=== PATIENT | female | born 1975 | race Caucasian/White ===

== ENCOUNTER → 2022-01-19 18:07 | Outpatient (CLI) | payer BC, SELFPAY ==
[2022-01-19 14:31] LABS: Alanine Aminotransferase 16 U/L (12-78); Albumin Level 4.5 g/dl (3.5-5.0); Albumin/Globulin Ratio 1.8 (1.1-1.8); Alkaline Phosphatase 40 U/L (38-126); Anion Gap 13.3 mEq/L (5-15); Aspartate Amino Transferase 28 U/L (14-36); Bilirubin,Total 0.5 mg/dl (0.2-1.3); Blood Urea Nitrogen 11 mg/dl (7-17); Carbon Dioxide 28 mmol/L (22.0-30.0); Chloride 105 mmol/L (98-107); Chol/HDL Ratio 3.9 (1-3.5); Cholesterol 192 mg/dl (140-200); Estimated Glomerular Filt Rate 90 ml/min (>60); GFR (African American) 109 ML/MIN (>60); Globulin 2.5 g/dL (1.3-3.2); Glucose 83 mg/dl (74-100); HDL Cholesterol 49 mg/dl (40-60); Potassium 4.3 mmoL/L (3.5-5.1); Sodium 142 mmol/L (136-145); Triglycerides 96 mg/dl (30-150); VLDL Cholesterol 19 mg/dL (0-40)
[2022-01-19 14:35] LABS: Basophils # 0.1 K/mm3 (0-0.2); Basophils % 1.4 % (0.1-2.0); Eosinophils # 0.1 K/mm3 (0.0-0.4); Eosinophils % 1.9 % (0.1-12.0); Hemoglobin 14.4 g/dL (12.2-16.2); Lymphocytes % 22.1 % (10-50); Mean Corpuscular HGB Conc 32.1 g/dL (31.8-35.4); Mean Corpuscular Hemoglobin 29.2 pg (27.0-31.2); Mean Corpuscular Volume 91.1 fl (81-99); Mean Platelet Volume 11.7 fl (7.4-10.4); Monocytes # 0.3 K/mm3 (0.1-1.0); Monocytes % 5.6 % (1.7-9.3); Neutrophils # 3.1 K/mm3 (1.8-7.8); Neutrophils % 69.1 % (37.0-80.0); Platelet Count 241 K/mm3 (142-424); Red Blood Count 4.94 M/mm3 (4.20-5.40); Red Cell Distribution Width 14.4 % (11.5-17.5); White Blood Count 4.5 K/mm3 (4.8-10.8)
[2022-01-19 14:43] LABS: Direct LDL Cholesterol 97.94 mg/dL (100-129)
[2022-01-19 14:59] LABS: 25-OH Vitamin D, Total 36.8 ng/mL (30-100)
[2022-01-19 15:02] LABS: Thyroid Stimulating Hormone 1.38 uIU/mL (0.465-4.68)
== END ==
PROVIDERS: Visit Provider Physician Assistant
DX: Z00.00 Encounter for general adult medical examination without abnormal findings (principal); E03.9 Hypothyroidism, unspecified
CPT/HCPCS: 80053; 80061; 82306; 84443; 85025

== ENCOUNTER → 2022-08-03 16:56 | Outpatient (CLI) | payer BC, SELFPAY | PROVIDERS: Visit Provider Podiatrist | DX: B35.1 Tinea unguium (principal) | CPT/HCPCS: 87220 ==

== ENCOUNTER → 2022-08-06 16:25 | Outpatient (CLI) | payer BC, SELFPAY | PROVIDERS: Visit Provider Podiatrist | DX: M79.674 Pain in right toe(s) (principal); B07.0 Plantar wart | CPT/HCPCS: 87070; 87205 ==

== ENCOUNTER → 2022-10-28 12:22 | Outpatient (CLI) | payer BC, SELFPAY ==
[2022-10-29 14:30] LABS: H. pylori Breath Test Negative (Negative)
== END ==
PROVIDERS: PCP Physician Assistant; Visit Provider Physician Assistant
DX: R14.0 Abdominal distension (gaseous) (principal); R14.2 Eructation
CPT/HCPCS: 83013

== ENCOUNTER → 2023-05-20 16:50 | Outpatient (CLI) | payer BC, SELFPAY ==
[2023-05-20 13:11] LABS: Basophils % 0.7 % (0.1-2.0); Eosinophils # 0.1 K/mm3 (0.0-0.4); Eosinophils % 1.3 % (0.1-12.0); Hematocrit 46.1 % (37.0-47.0); Hemoglobin 14.4 g/dL (12.2-16.2); Lymphocytes # 1.3 K/mm3 (0.7-4.5); Lymphocytes % 25.4 % (10-50); Mean Corpuscular HGB Conc 31.3 g/dL (31.8-35.4); Mean Corpuscular Hemoglobin 28.3 pg (27.0-31.2); Mean Corpuscular Volume 90.3 fl (81-99); Mean Platelet Volume 11.5 fl (7.4-10.4); Monocytes # 0.4 K/mm3 (0.1-1.0); Monocytes % 6.9 % (1.7-9.3); Neutrophils # 3.3 K/mm3 (1.8-7.8); Neutrophils % 65.8 % (37.0-80.0); Platelet Count 233 K/mm3 (142-424); Red Blood Count 5.11 M/mm3 (4.20-5.40); Red Cell Distribution Width 14.1 % (11.5-17.5); White Blood Count 5.1 K/mm3 (4.8-10.8)
[2023-05-20 13:35] LABS: Erythrocyte Sedimentation Rate 11 mm/hr (0-20)
[2023-05-20 13:39] LABS: Alanine Aminotransferase 18 U/L (12-78); Albumin/Globulin Ratio 1.7 (1.1-1.8); Alkaline Phosphatase 66 U/L (38-126); Amylase 74 U/L (30-110); Anion Gap 17.4 mEq/L (5-15); Aspartate Amino Transferase 30 U/L (14-36); Bilirubin,Total 0.3 mg/dl (0.2-1.3); Blood Urea Nitrogen 9 mg/dl (7-17); Calcium 9.1 mg/dl (8.4-10.2); Carbon Dioxide 26 mmol/L (22.0-30.0); Chloride 105 mmol/L (98-107); Chol/HDL Ratio 3.7 (1-3.5); Cholesterol 212 mg/dl (140-200); Estimated Glomerular Filt Rate 77 ml/min (>60); GFR (African American) 93 ML/MIN (>60); Glucose 77 mg/dl (74-100); HDL Cholesterol 58 mg/dl (40-60); Lipase 175 U/L (23-300); Potassium 4.4 mmoL/L (3.5-5.1); Sodium 144 mmol/L (136-145); Triglycerides 229 mg/dl (30-150); VLDL Cholesterol 46 mg/dL (0-40)
[2023-05-20 13:50] LABS: Direct LDL Cholesterol 105.45 mg/dL (100-129)
[2023-05-20 13:54] LABS: 25-OH Vitamin D, Total 35.3 ng/mL (30-100)
[2023-05-20 21:21] LABS: Thyroid Stimulating Hormone 3.63 uIU/mL (0.465-4.68)
[2023-05-22 09:23] LABS: FSH 5.2 mIU/mL (.); LH 3.8 mIU/mL (.); Progesterone 0.1 ng/mL (.); Testosterone,Total 16 ng/dL (4-50)
[2023-05-25 13:08] LABS: Anti-Centromere B Antibodies <0.2 AI (0.0-0.9); Anti-DNA (DS) Ab Qn 1 IU/mL (0-9); Anti-Jo-1 <0.2 AI (0.0-0.9); Anti-Smith Antibody <0.2 AI (0.0-0.9); Antichromatin Antibodies <0.2 AI (0.0-0.9); Antiscleroderma-70 Antibodies <0.2 AI (0.0-0.9); RNP Antibodies >8.0 AI (0.0-0.9); Sjogren's Anti-SS-A <0.2 AI (0.0-0.9); Sjogren's Anti-SS-B <0.2 AI (0.0-0.9)
[2023-05-28 19:35] LABS: Estrogen 138 pg/mL (.)
== END ==
PROVIDERS: PCP Physician Assistant; Visit Provider Physician Assistant
DX: R07.9 Chest pain, unspecified (principal); M54.9 Dorsalgia, unspecified; E03.9 Hypothyroidism, unspecified; R00.2 Palpitations; R06.02 Shortness of breath
CPT/HCPCS: 80053; 80061; 82150; 82306; 82397; 82672; 83001; 83002; 83690; 84144; 84403; 84443; 85025; 85651; 86140; 86225; 86235

== ENCOUNTER → 2023-05-25 14:31 | Outpatient (CLI) | payer BC, SELFPAY | PROVIDERS: PCP Physician Assistant; Visit Provider Physician Assistant | DX: R00.2 Palpitations (principal) | CPT/HCPCS: 93225; 93226 ==

== ENCOUNTER → 2023-05-31 08:14 | Outpatient (CLI) | payer BC, SELFPAY ==
--- NOTE | 2023-05-31 08:17 | US_ITS ---
FINAL REPORT CLINICAL HISTORY: palpitations COMPARISON: None FINDINGS: Sonographic images of the right upper quadrant were obtained. The pancreas is partially obscured.The liver is mildly fatty infiltrated.The gallbladder appears normal without evidence of gallstones.There is no evidence of biliary ductal dilatation.The common duct measures 2 mm. Limited images of the right kidney are unremarkable. IMPRESSION: Mild fatty liver. Reviewed, Interpreted and Dictated by Сергей Carolina III, MD Transcribed by Nyla Kirby Authenticated and [facility]
== END ==
PROVIDERS: PCP Physician Assistant; Visit Provider Physician Assistant
DX: R00.2 Palpitations (principal)
CPT/HCPCS: 76705

== ENCOUNTER → 2023-06-04 07:11 | Outpatient (CLI) | payer BC, SELFPAY ==
--- NOTE | 2023-06-04 | CA_ITS ---
APPROVED REPORT Exam: Exercise Treadmill Technologist: Flakita Marin, Ht: 5 ft 6 in Wt: 163 lbs BSA: 1.83 m2 HR: 53 bpm BP: 129/68 mmHg Rhythm: NSR Medical History Medications: Omeprazole,,,,, Levothyroxine,,,,, ClonAZEPAM,,,,, Montelukast,,,,, Meclizine,,,,, Stress Test Details Test: Yan HR Resting HR: 65 bpm Max Heart Rate (APMHR): 172 bpm Max HR Achieved: 159 bpm Target HR (85% APMHR): 146 bpm % of APMHR: 92 Recovery HR: 89 bpm HR response to stress: Normal HR response to stress BP Resting BP: 138.0/73 mmHg Max BP: 160/90 mmHg Recovery BP: 130.0/61.0 mmHg BP response to stress: Normal blood pressure response to stress. ECG Resting ECG: Sinus bradycardia Stress ECG: No significant ST changes Arrhythmia: Occasional PACs Recovery ECG: No significant ST changes Recovery Arrhythmia: None Clinical Exercise duration: 10:16 min Highest Stage Achieved: IV Exercise capacity: 12.8 METs Overall Exercise Capacity for Age: Average Stress ECG Conclusion The patient was able to exercise for a total of 10 minutes, 16 seconds. She achieved a total of 12.8 METS. She has an average exercise capacity compared to age and sex matched peers. She has normal HR and BP response to exercise. Max HR 159 % of PM: 92% Max BP: 160/90 METs: 12.8 Test stopped due to: SOA, fatigue Symptoms: No CP. Arrhythmias/Ectopy: Occasional PACs ST-T Changes: Normal ST response to exercise. Conclusion: Normal GXT. Myoview images reported separately. Test Summary REST . . . . . . . Sitting REST . . . . . . . Standing REST 03:47 0.0 0.0 65 . 138/ 73 . . Stage 1 01:00 10.0 1.7 79 . . . . Stage 1 02:00 10.0 1.7 86 . . . . Stage 1 03:00 10.0 1.7 90 . 128/ 80 . . Stage 2 01:00 12.0 2.5 94 . . . . Stage 2 02:00 12.0 2.5 104 . 158/ 80 . . Stage 2 03:00 12.0 2.5 99 . 158/ 80 . . Stage 3 01:00 14.0 3.4 116 . . . . Stage 3 02:00 14.0 3.4 124 . . . . Stage 3 03:00 14.0 3.4 126 . 160/ 90 . . Stage 4 01:00 16.0 4.2 152 . . . . Stage 4 01:16 16.0 4.2 157 . . . Stop exercise at 10:16 RECOVERY 01:00 0.0 0.0 126 . . . . RECOVERY 02:00 0.0 0.0 101 . 154/ 59 . . RECOVERY 03:00 0.0 0.0 89 . 154/ 59 . . RECOVERY 04:00 0.0 0.0 84 . 124/ 63 . . RECOVERY 05:00 0.0 0.0 87 . 130/ 61 . . RECOVERY 05:16 0.0 0.0 78 . 130/ 61 . . Electronically signed by : Ana Young MD 06/12/2023 19:58:27
--- NOTE | 2023-06-04 07:11 | NM_ITS ---
APPROVED REPORT Exam: Nuclear Stress Test Indication: HTN, TOB USE, FM HX, ANGINA, SOB, PALPAITATIONS, FATIGUE Patient Location: Outpatient Stress Tech: Flakita Moreland [place] Tech:Asha Lima, ARRT RT (R)(N)(M) Ht: 5 ft 6 in Wt: 160 lbs Bra Size: C HR: 65 bpm BP: 138/73 mmHg BSA: 1.82 m2 Rhythm: NSR TID: 1.07 BMI: 25.8 History: HTN, TOB USE, FM HX, ANGINA, SOB, PALPAITATIONS, FATIGUE Procedure: Patient exercised on Yan protocol 10:16 minutes and sec, resting heart rate 65 bpm, resting blood pressure 138/73 mmHg, with exercise maximum heart rate achived was 159 bpm which is 92 % of the maximum predicted heart rate and blood pressure was 160/90 mmHg. Test was stopped due to FATIGUE. Patient has Average exercise capacity, achieved 12.8 METs of workload on treadmill, the blood pressure response to exercise was Normal. Cardiac Stress and Resting SPECT Images: Cardiac Stress and Resting SPECT images were obtained using technetium 99m Myoview 30.2 mCi stress and 10.48 mCi at rest. Resting and stress imaging in both supine and prone positions demonstrate a medium sized, moderate, reversible perfusion defect in the mid to distal anterior LV wall. Gated imaging demonstrates normal global LV systolic function. There is mild hypokinesis of the distal anterior LV wall. LVEF is calculated at 51%. Conclusion: Medium sized, moderate, reversible perfusion defect in the mid to distal anterior LV wall. Findings are suggestive of reversible ischemia. Gated imaging demonstrates normal global LV systolic function. There is mild hypokinesis of the distal anterior LV wall. LVEF is calculated at 51%. Electronically signed by : Ana Young MD 06/12/2023 20:00:40
== END ==
PROVIDERS: PCP Physician Assistant; Visit Provider Physician Assistant
DX: R00.2 Palpitations (principal)
CPT/HCPCS: 78452; 93017; A9502

== ENCOUNTER → 2023-06-11 14:21 | Outpatient (CLI) | payer BC, SELFPAY ==
--- NOTE | 2023-06-11 14:24 | CA_ITS ---
APPROVED REPORT EXAM: Comprehensive 2D, Doppler, and color-flow Echocardiogram Accreditation Specialist: Yanique Steven CRT Ht: 5 ft 6 in Wt: 163lbs BSA: 1.83 BP: 152/82 mmHg Indications: Chest Pain, Shortness of Breath, Palpitations, smoker 2D Dimensions LVOT 2.07 cm (M/F) 1.5-2.5 LA Volume 20.80 mL LA Volume Index 11.10 mL/m2 (M/F) 16-34 M-Mode Dimensions RVDd 2.55 cm (0.9-2.6) LA Diam 3.10 cm (1.9-4.0) LVDd 4.56 cm (3.5-5.7) Ao Diam 3.23 cm (2.0-3.7) LVDs 2.73 cm (3.5-5.7) IVSd 1.33 cm (0.6-1.1) PWd 0.65 cm (0.6-1.1) EF (Teich) 70.90% FS 40.10% EDV (Teich) 95.40 mL TAPSE 2.30 (<1.7) ESV (Teich) 27.80 mL LV Diastology E Decel Time 267.00 (160-240 msec) E/A Ratio 0.91 MED E' 8.70 (< 7 cm/sec) MED A' 11.10 cm/s E'/MED E' Ratio 7.74 (>14) LAT E' 10.90 (<10 cm/sec) LAT A' 9.70 cm/s E/LAT E' Ratio 6.17 (>14) Aortic Valve AO Peak GR. 6.00 mmHg Mitral Valve MV A Velocity 74.00 (40-130 cm/s) E/A Ratio 0.91 MV Decel. Time 267.00 (160-240 ms) Pulmonary Valve PV Peak Velocity 95.00 (50-150 cm/s) Tricuspid Valve TR P. Velocity 237.00 cm/s RAP Estimate 10.00 mmHg RVSP 32.50 mmHg Left Ventricle The left ventricle is normal size. The left ventricular systolic function is normal. The left ventricular ejection fraction is within the normal range. There is normal left ventricular wall thickness. There is normal LV segmental wall motion. The left ventricular diastolic function is normal. LVEF is 55%. Right Ventricle The right ventricle is normal size. The right ventricular systolic function is normal. Atria The left atrium size is normal. The right atrium size is normal. There is no Doppler evidence of interatrial shunt. Aortic Valve The aortic valve opens well. There is no aortic valvular stenosis. No aortic regurgitation is present. Mitral Valve The mitral valve is normal in structure. No evidence of mitral valve stenosis. There is no mitral valve regurgitation noted. Tricuspid Valve The tricuspid valve leaflets are thin and pliable. Trace tricuspid regurgitation. RVSP is normal. Pulmonic Valve The pulmonary valve is normal in structure. Trace pulmonic regurgitation. Great Vessels The aortic root is normal in size. The ascending aorta is normal in size. IVC is normal in size and collapses >50% with inspiration. Pericardium There is no pericardial effusion. Other Information Study Quality: Fair Conclusion Normal biventricular systolic function. No significant valvular stenosis or regurgitation. Electronically signed by : Ana Young MD 06/13/2023 20:14:24
== END ==
PROVIDERS: PCP Physician Assistant; Visit Provider Physician Assistant
DX: R00.2 Palpitations (principal)
CPT/HCPCS: 93306

== ENCOUNTER 2023-06-22 08:02 | Day surgery (SDC) | payer BC, SELFPAY ==
[2023-06-22] VITALS (12 sets, daily range): BP systolic 102–170; BP diastolic 54–82; PULSE 48–90; RESP 16–18; O2SAT 95–100; BMI 26.3
--- NOTE | 2023-06-22 07:06 | IR_ITS ---
APPROVED REPORT Patient Location: Outpatient Server Administrator: HAI Boyd RT (R) PROCEDURES Left heart catheterization Left ventriculogram Selective coronary angiogram INDICATION Angina pectoris, Abnormal Myoview Informed consent was obtained prior to the procedure. COMPLICATIONS None Estimated Blood Loss: Less than 10 ML TECHNIQUE One percent lidocaine used to anesthetize the right anterior aspect of the wrist. The right radial artery was accessed via the Seldinger technique. A 6 Scottish sheath was placed in the right radial artery. 2.5 mg of Verapamil, 800 mcg of nitroglycerin, 1mg Lidocaine and 5000 U Heparin were given through the arterial sheath. The papa catheter was also used to perform left heart catheterization, left ventriculogram and selective coronary angiogram. At the end of the procedure the sheath was removed good hemostasis was achieved using Traclet band, patient was transferred to the postop holding area in stable condition. 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 Recommend CCTA to determine if the anomalous right coronary artery has a malignant course Electronically signed by : Jorge Albert MD 06/22/2023 10:29:44
[2023-06-22 08:45] LABS: Basophils % 0.7 % (0.1-2.0); Eosinophils # 0.1 K/mm3 (0.0-0.4); Eosinophils % 1.8 % (0.1-12.0); Hematocrit 41.4 % (37.0-47.0); Hemoglobin 13.3 g/dL (12.2-16.2); Lymphocytes # 1.4 K/mm3 (0.7-4.5); Lymphocytes % 24.4 % (10-50); Mean Corpuscular HGB Conc 32.2 g/dL (31.8-35.4); Mean Corpuscular Volume 86.9 fl (81-99); Mean Platelet Volume 10.8 fl (7.4-10.4); Monocytes # 0.4 K/mm3 (0.1-1.0); Monocytes % 6.3 % (1.7-9.3); Neutrophils # 3.8 K/mm3 (1.8-7.8); Neutrophils % 66.9 % (37.0-80.0); Platelet Count 224 K/mm3 (142-424); Red Blood Count 4.76 M/mm3 (4.20-5.40); Red Cell Distribution Width 14.1 % (11.5-17.5); White Blood Count 5.7 K/mm3 (4.8-10.8)
[2023-06-22 08:52] LABS: Chloride 107 mmol/L (98-107); Potassium 3.7 mmoL/L (3.5-5.1); Sodium 142 mmol/L (136-145)
[2023-06-22 08:55] LABS: Anion Gap 8.7 mEq/L (5-15); Blood Urea Nitrogen 11 mg/dl (7-17); Carbon Dioxide 30 mmol/L (22.0-30.0); Creatinine Clearance Estimated 100 mL/min (50-200); Estimated Glomerular Filt Rate 77 ml/min (>60); GFR (African American) 93 ML/MIN (>60); Glucose 93 mg/dl (74-100); HCG Qualitative, Serum Negative (Negative)
--- NOTE | 2023-06-22 10:35 | SUR.PHASEII ---
cardiology office called in regards to scheduling CCTA and obtaining preauthorization.
--- NOTE | 2023-06-22 13:08 | SUR.PHASEII ---
called and spoke with cardiology office regarding pt's procedure getting scheduled, informed that Emma is still working on obtaining preauthorization at this time.
--- NOTE | 2023-06-22 13:16 | SUR.PHASEII ---
Emma called and pt's procedure scheduled on June 25 at 7am.
== END 2023-06-22 13:40 | disposition home or self-care (01) ==
PROVIDERS: PCP Physician Assistant; Visit Provider Internal Medicine
DX: R94.39 Abnormal result of other cardiovascular function study (principal); Z79.899 Other long term (current) drug therapy; E03.9 Hypothyroidism, unspecified; F17.290 Nicotine dependence, other tobacco product, uncomplicated; I20.89 Other forms of angina pectoris
CPT/HCPCS: 80048; 84703; 85025; 93458; 99152; C1725; C1769; J1644; Q9967

== ENCOUNTER 2023-06-25 07:01 | Outpatient (CLI) | payer BC, SELFPAY ==
--- NOTE | 2023-06-25 07:07 | CT_ITS ---
APPROVED REPORT Animal Eviscerator: CLINICAL INDICATION Chest Pain TECHNIQUE Image Acquisition: A 128 slice MDCT scanner ([employer] View) was used for data acquisition. A noncontrast coronary calcium scan was performed. A CT attenuation threshold of 130 Hounsfield units (HU) was used for the detection of calcium in contiguous voxels of 1 sq mm in area to be counted as individual lesions. Bolus tracking in the ascending aorta with a threshold of 180 HU was performed. Immediately afterwards, ECG synchronized cardiac CT was then performed from the cardiac base to apex using retrospective gating with ECG tube current modulation. A total of 85 mL of Isovue 370 mg/mL contrast medium was administered at 5 mL/sec followed by a saline flush using a biphasic injection protocol. A tube voltage of 120 KVp was used. The patient received the following medications prior to the cardiac CT. 0.4mg of sublingual nitroglycerin. The average heart rate at the time of acquisition was 53 bpm and regular. Image Reconstruction Transaxial images were reconstructed at 0.67 mm slide thickness. Data was reviewed interactively on an advanced workstation capable of 2 and 3-dimensional displays in all conventional reconstruction formats, including multiplanar reformations, maximum intensity projections, curved multiplanar reformations, and volume rendered reconstructions. When applicable, selected routine images describing the relevant coronary anatomy and pathology were saved and sent to PACS. Complications None Technical Quality Overall image quality was fair. Coronary artery opacification was adequate, but significant motion artifact was present Total DLP (Dose-Length Product) is 1912.3 mGy-cm. The reported value represents the total of one or more individual components during the CT acquisition of this date and at this time, and as such, the same value may appear in more than one CT report depending on the interpreting/reporting physicians. COMPARISON None FINDINGS CT Coronary Calcium Scoring LMA (Left Main Artery) = 0 LAD (Left Anterior Descending) = 0 LCX (Left Coronary Circumflex) = 0 RCA (Right Coronary Artery) = 0 Total Calcium Score = 0 using the AJ-130 method. The interpretation of the calcium heart score is based on the following continuum*: 0 = no calcified plaque detected (risk of coronary artery disease is very low ??? less than 5%) 1-10 = calcium detected in extremely minimal levels (risk of coronary diseases is still low ??? less than 10%) 11-100 = mild levels of plaque detected with certainty (mild or minimal narrowing of heart arteries is likely) 101-400 = definite,at least moderate levels of plaque detected (relatively high risk of a heart attack within 3-5 years) >401-999 = extensive levels of plaque detected (high risk of heart attack, high levels of vascular disease are present, high likelihood of at least one significant coronary narrowing) *The calcium heart score quantifies the burden of coronary calcification/plaque in the coronary arteries. The calcium heart score is not able to evaluate the presence or burden of non-calcified (i.e. soft) plaque. There is no identifiable calcification in the aortic valve, mitral annulus or mitral valve, pericardium, or myocardium. Coronary CT Angiography Coronaries have normal origin and proximal course. The coronary arterial system is right dominant. Note: Stenosis is reported as maximum percentage diameter stenosis. Stenosis grading is reported using the following scheme: Quantitative Stenosis Grading: Left Main (LM): The left main originates normally from the left sinus of Valsalva. The LM bifurcates into the left anterior descending artery and left circumflex artery. The LM is patent wit
[2023-06-25 07:34] VITALS: BMI 25.8
[2023-06-25 08:05] VITALS: BP 119/62; PULSE 56; RESP 16; O2SAT 99
[2023-06-25 08:15] VITALS: BP 102/51; PULSE 55; RESP 16; O2SAT 95
[2023-06-25 08:20] VITALS: BP 115/52; PULSE 75; RESP 16; O2SAT 98
[2023-06-25 08:28] LABS: Chloride 105 mmol/L (98-107); Potassium 4.1 mmoL/L (3.5-5.1); Sodium 140 mmol/L (136-145)
[2023-06-25 08:30] VITALS: BP 108/61; PULSE 57; RESP 16; O2SAT 100
[2023-06-25 08:30] LABS: Alanine Aminotransferase 21 U/L (12-78); Aspartate Amino Transferase 37 U/L (14-36); Bilirubin,Total 0.4 mg/dl (0.2-1.3); Blood Urea Nitrogen 10 mg/dl (7-17); Creatinine Clearance Estimated 113 mL/min (50-200); Estimated Glomerular Filt Rate 89 ml/min (>60); GFR (African American) 108 ML/MIN (>60)
[2023-06-25 08:31] LABS: Albumin Level 3.8 g/dl (3.5-5.0); Albumin/Globulin Ratio 1.3 (1.1-1.8); Alkaline Phosphatase 47 U/L (38-126); Anion Gap 11.1 mEq/L (5-15); Calcium 8.9 mg/dl (8.4-10.2); Carbon Dioxide 28 mmol/L (22.0-30.0); Glucose 98 mg/dl (74-100); Total Protein,Serum 6.8 g/dl (6.3-8.2)
[2023-06-25 08:40] VITALS: BP 115/71; PULSE 59; RESP 16; O2SAT 99
[2023-06-25 08:50] VITALS: BP 110/64; PULSE 60; RESP 16; TEMP 36.6; O2SAT 100
== END 2023-06-25 09:10 | disposition home or self-care (01) ==
PROVIDERS: PCP Physician Assistant; Visit Provider Internal Medicine
DX: R07.9 Chest pain, unspecified (principal); R93.89 Abnormal findings on diagnostic imaging of other specified body structures; R94.39 Abnormal result of other cardiovascular function study
CPT/HCPCS: 75574; 80053; Q9967

== ENCOUNTER → 2023-08-10 11:04 | Outpatient (CLI) | payer BC, SELFPAY ==
--- NOTE | 2023-08-10 11:17 | XR_ITS ---
FINAL REPORT CLINICAL HISTORY: foot pain/toe pain and discoloration FINDINGS: 3 views of the right foot were obtained. There is no acute fracture or dislocation. The joint spaces are intact. There is a calcification lateral to the first IP joint favored to be chronic. IMPRESSION: No acute process. Reviewed, Interpreted and Dictated by Сергей Carolina III, MD Transcribed by Fahad Garcia Authenticated and [facility]
--- NOTE | 2023-08-10 11:17 | XR_ITS ---
FINAL REPORT CLINICAL HISTORY: great toe pain FINDINGS: Multiple views of the right toe were obtained. There is no acute fracture. There is no dislocation. There is a calcification lateral to the first IP joint favored to be chronic. IMPRESSION: No acute process. Reviewed, Interpreted and Dictated by Сергей Carolina III, MD Transcribed by Fahad Garcia Authenticated and [facility]
[2023-08-10 11:50] LABS: Basophils % 0.4 % (0.1-2.0); Eosinophils % 0.5 % (0.1-12.0); Hematocrit 41.8 % (37.0-47.0); Hemoglobin 13.7 g/dL (12.2-16.2); Lymphocytes # 1.2 K/mm3 (0.7-4.5); Mean Corpuscular HGB Conc 32.8 g/dL (31.8-35.4); Mean Corpuscular Hemoglobin 29.2 pg (27.0-31.2); Mean Corpuscular Volume 88.9 fl (81-99); Mean Platelet Volume 10.6 fl (7.4-10.4); Monocytes # 0.4 K/mm3 (0.1-1.0); Monocytes % 7.2 % (1.7-9.3); Neutrophils # 3.5 K/mm3 (1.8-7.8); Neutrophils % 68.8 % (37.0-80.0); Platelet Count 225 K/mm3 (142-424); Red Blood Count 4.71 M/mm3 (4.20-5.40); Red Cell Distribution Width 14.1 % (11.5-17.5)
[2023-08-10 12:47] LABS: Alanine Aminotransferase 28 U/L (12-78); Albumin Level 4.3 g/dl (3.5-5.0); Albumin/Globulin Ratio 1.7 (1.1-1.8); Alkaline Phosphatase 50 U/L (38-126); Anion Gap 11.2 mEq/L (5-15); Aspartate Amino Transferase 38 U/L (14-36); Bilirubin,Total 0.3 mg/dl (0.2-1.3); Blood Urea Nitrogen 11 mg/dl (7-17); Calcium 8.3 mg/dl (8.4-10.2); Carbon Dioxide 28 mmol/L (22.0-30.0); Chloride 104 mmol/L (98-107); Estimated Glomerular Filt Rate 89 ml/min (>60); GFR (African American) 108 ML/MIN (>60); Globulin 2.5 g/dL (1.3-3.2); Glucose 88 mg/dl (74-100); Potassium 4.2 mmoL/L (3.5-5.1); Sodium 139 mmol/L (136-145); Total Protein,Serum 6.8 g/dl (6.3-8.2)
[2023-08-10 12:48] LABS: Erythrocyte Sedimentation Rate 9 mm/hr (0-20)
[2023-08-10 12:53] LABS: C-Reactive Protein 2.9 mg/L (0-4)
== END ==
PROVIDERS: PCP Physician Assistant; Visit Provider Podiatrist
DX: L81.9 Disorder of pigmentation, unspecified (principal); M79.671 Pain in right foot; M79.674 Pain in right toe(s)
CPT/HCPCS: 36415; 73630; 73660; 80053; 85025; 85651; 86140

== ENCOUNTER 2023-12-01 19:59 | Outpatient (CLI) | payer BC, SELFPAY | END 2023-12-01 23:59 | LOC: LAB.DROPOF 19:59 | PROVIDERS: PCP Physician Assistant; Visit Provider Physician Assistant | DX: R30.0 Dysuria (principal); B95.2 Enterococcus as the cause of diseases classified elsewhere; B96.89 Other specified bacterial agents as the cause of diseases classified elsewhere | CPT/HCPCS: 87086 ==

== ENCOUNTER 2024-02-18 11:31 | Outpatient (CLI) | payer BC, SELFPAY | END 2024-02-18 23:59 | disposition home or self-care (01) | LOC: LAB.DROPOF 02-19 11:31 | PROVIDERS: PCP Student in an Organized Health Care Education/Training Program; Visit Provider Student in an Organized Health Care Education/Training Program | DX: N39.0 Urinary tract infection, site not specified (principal) | CPT/HCPCS: 87086 ==

== ENCOUNTER 2024-03-03 18:00 | Outpatient (CLI) | payer BC, SELFPAY | END 2024-03-03 23:59 | disposition home or self-care (01) | LOC: LAB.DROPOF 03-04 08:54 | PROVIDERS: PCP Student in an Organized Health Care Education/Training Program; Visit Provider Student in an Organized Health Care Education/Training Program | DX: N39.0 Urinary tract infection, site not specified (principal) | CPT/HCPCS: 87086 ==

== ENCOUNTER 2024-03-14 06:20 | Outpatient (CLI) | payer BC, SELFPAY ==
--- NOTE | 2024-03-14 06:28 | CT_ITS ---
FINAL REPORT TECHNIQUE: Noncontrast CT exam of the abdomen and pelvis. This study was performed with techniques to keep radiation doses as low as reasonably achievable (ALARA). Individualized dose reduction techniques using automated exposure control or adjustment of mA and/or kV according to the patient''s size were employed. CLINICAL HISTORY: hematuria, left flank pain FINDINGS: Abdomen: Lung bases are clear. There is a hypodense lesion in the caudate lobe of the liver measuring 13 mm, probably a cyst. The spleen, pancreas and adrenal glands have a normal CT appearance in their limited unenhanced state. The kidneys show no stone disease or obstruction. No obvious renal mass is present. No ureteral stones are present. Pelvis: The appendix is normal. No distal ureteral stones are seen. Patient is status post hysterectomy. Bladder is unremarkable. No fluid collection or adenopathy is seen. IMPRESSION: No evidence of upper urinary tract stone disease or obstruction Reviewed, Interpreted and Dictated by Ale Monteiro MD Transcribed by Octavia Frazier Authenticated and [facility]
--- NOTE | 2024-03-14 06:44 | XR_ITS ---
FINAL REPORT CLINICAL HISTORY: tightness in chest FINDINGS: No acute pulmonary density is evident. There is no evidence of effusion or other pleural disease. The mediastinum has a normal appearance. The cardiac silhouette is unremarkable. IMPRESSION: Unremarkable chest exam. Reviewed, Interpreted and Dictated by Ale Monteiro MD Transcribed by Octavia Frazier Authenticated and [facility]
== END 2024-03-14 23:59 | disposition home or self-care (01) ==
LOC: RAD 06:22
PROVIDERS: PCP Physician Assistant; Visit Provider Student in an Organized Health Care Education/Training Program
DX: R31.9 Hematuria, unspecified (principal); R10.9 Unspecified abdominal pain; R07.89 Other chest pain
CPT/HCPCS: 71046; 74176

== ENCOUNTER 2024-08-25 07:48 | Outpatient (CLI) | payer BC, SELFPAY ==
--- NOTE | 2024-08-25 07:56 | US_ITS ---
FINAL REPORT CLINICAL HISTORY: .PAIN LEFT LEG COMPARISON: None FINDINGS: ANKLE-BRACHIAL PRESSURE INDICES Pressure indices are as follows: RIGHT LOWER EXTREMITY: Ankle-brachial pressure index: 1.4 Comments: Normal LEFT LOWER EXTREMITY: Ankle-brachial pressure index: 1.3 Comments: Normal CONCLUSION: No evidence of significant obstructive peripheral vascular disease of the lower extremities Reviewed, Interpreted and Dictated by Сергей Carolina III, MD Transcribed by Hilary Lujan Authenticated and [facility]
== END 2024-08-25 23:59 | disposition home or self-care (01) ==
PROVIDERS: PCP Physician Assistant; Visit Provider Physician Assistant
DX: M79.605 Pain in left leg (principal)
CPT/HCPCS: 93923

== ENCOUNTER 2025-03-26 08:03 | Day surgery (SDC) | payer BC, SELFPAY ==
[2025-03-26 09:04] VITALS: BP 116/62; PULSE 52; RESP 18; TEMP 36.3; O2SAT 98
--- NOTE | 2025-03-26 09:20 | EXP.ANES.CKL ---
[facility] Disclaimer: The information contained in this section may have been updated after the patient was seen, as this information can be updated by other users. 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 Cellulitis of great toe, right Chest pain Abnormal angiogram Abnormal myocardial perfusion study Vertigo Migraine headache Allergic rhinitis Hypothyroidism Insomnia Gastroesophageal reflux disease Surgical History History of hysterectomy Family History Other Family history of cancer Family history of diabetes mellitus type I Family history of diabetes mellitus type II Family history of hyperlipidemia Family history of hypertension Family history of myocardial infarction Social History Smoking Status: Current every day smoker tobacco type: e-cigarettes alcohol intake: never substance use type: denies use current occupational status: employed Travel in the last 8 weeks?: None household members: family housing: house Have you lived/traveled outside [place] in past 30 days?: No Contact w/someone who lives/traveled outside [place] past 30 days?: No Exposure to someone with infectious disease in past 14 days?: No Do you have a fever (greater than 100.4 F or 38 C)?: No Have you tested positive for COVID-19?: No Exposed to someone with COVID-19 in past 14 days?: No Do you have a sore throat?: No Do you have a cough?: No Do you have any weakness?: No Do you have any diarrhea?: No Are you experiencing any unusual bleeding?: No Do you have any muscle aches/pain?: No Do you have any abdominal pain?: No Are you experiencing loss of taste or smell?: No [facility] Anesthesia Checklist Patient Identification Patient Identification: Arm Band and Verbal (Name & ) Structural Data Admitted From: Home Planned Operative Procedure/s: colonscopy Consent for Planned Operative Procedure(s) Verified: Yes Verified Documents: Surgical Consent and History and Physical NPO Status Verified Time NPO: 00:00 Additional verifications Anesthesia Reactions: No Airway Assessment Mallampati Score:: Class II Dentition: Good Dentition Neurological Assessment Level of Consciousness: Awake, Alert and Appropriate Anesthesia Plan Anesthesia Risk discussed: Yes Anesthesia Plan: Verified ASA Class: II Anesthesia Type: MAC
--- NOTE | 2025-03-26 09:52 | P.HP_ITS ---
History of Present Illness *Admission Date: 03/26/25 *History of present illness: Mrs. Em is a 49-year-old female who is here for screening colonoscopy. The examination is deemed medically necessary for screening colonoscopy. The patient has been seen, interviewed and examined prior to the procedure by both myself and the anesthesia provider. [facility] Disclaimer: The information contained in this section may have been updated after the patient was seen, as this information can be updated by other users. 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 Cellulitis of great toe, right Chest pain Abnormal angiogram Abnormal myocardial perfusion study Vertigo Migraine headache Allergic rhinitis Hypothyroidism Insomnia Gastroesophageal reflux disease Surgical History History of hysterectomy Family History Other Family history of cancer Family history of diabetes mellitus type I Family history of diabetes mellitus type II Family history of hyperlipidemia Family history of hypertension Family history of myocardial infarction Social History Smoking Status: Current every day smoker tobacco type: e-cigarettes alcohol intake: never substance use type: denies use current occupational status: employed Travel in the last 8 weeks?: None household members: family housing: house Have you lived/traveled outside [place] in past 30 days?: No Contact w/someone who lives/traveled outside [place] past 30 days?: No Exposure to someone with infectious disease in past 14 days?: No Do you have a fever (greater than 100.4 F or 38 C)?: No Have you tested positive for COVID-19?: No Exposed to someone with COVID-19 in past 14 days?: No Do you have a sore throat?: No Do you have a cough?: No Do you have any weakness?: No Do you have any diarrhea?: No Are you experiencing any unusual bleeding?: No Do you have any muscle aches/pain?: No Do you have any abdominal pain?: No Are you experiencing loss of taste or smell?: No Other Medical History Have you received the Flu Vaccine for this season: No Have you received the Pneumonia Vaccine: No Review of Systems Review of Systems Review of systems (narrative): Negative *Cardiovascular Comments: Negative *Gastrointestinal Comments: Negative *Genitourinary Comments: Negative *Musculoskeletal Comments: Negative *Neurologic Comments: Negative Meds Home Medications and Allergies Home Medications ?Medication ?Instructions ?Recorded ?Confirmed ?Type clonazepam 1 mg tablet 1 mg PO HS #30 tabs 12/29/24 03/26/25 Rx levothyroxine 100 mcg tablet 100 mcg PO DAILY 03/20/25 03/26/25 History omeprazole 40 mg capsule,delayed 40 mg PO DAILY 03/26/25 History release fexofenadine 30 mg tablet 120 mg PO DAILY 03/26/2504/13 History New Prescriptions to Start Prescriptions: Allergies Allergy/AdvReac Type Severity Reaction Status Date / Time cat dander Allergy Cough Verified 03/26/25 09:01 Penicillins AdvReac Unknown Verified 03/26/25 09:01 allergy reaction Exam Data for Last 24 hours Vital signs and Labs for Last 24 Hours: Temp Pulse Resp BP Pulse Ox O2 Del Method 97.4 F L 52 L 18 116/62 98 Room Air 03/26/25 09:04 03/26/25 09:04 03/26/25 09:04 03/26/25 09:04 03/26/25 09:04 03/26/25 09:04 *Routine HEENT Exam Head: Present normocephalic Eye: Present EOMI and PERRL ENT: Present mucous membranes moist *Routine Neck Exam Neck: Present supple *Routine Respiratory Exam Respiratory: Present CTA bilaterally *Routine Cardiovascular Exam Cardiovascular: Present RRR *Routine Abdominal Exam Abdominal: Present soft and normoactive bowel sounds; Absent tenderness *Routine Rectal Exam Rectal:: deferred *Routine Genitalia Exam Genitalia:: deferred *Routine Extremities Exam Extremities: Absent cyanosis, clubbing or edema *Routine Skin Exam Skin: Present warm; Absent rash *Routine Neurological Exam Neurological: Present alert and oriented X3 Assessment and Plan *Assessment and plan (1) Screening for colon cancer: Status: Acute Category: Medical Code(s): Z12.11 - Encounter for screening for malignant neoplasm of colon Plan A/P: 1. Screening for colon cancer is the preprocedural diagnosis. The patient will be anesthetized/sedated using MAC sedation. The patient has been seen and examined. Cardiac and lung assessment prior to the examination is stable. Proceed with planned screening colonoscopy.
--- NOTE | 2025-03-26 10:03 | HMH.PROCNOTE ---
[facility] Procedure Note Date: 03/26/25 Time: 10:17 Procedure Note:: Colonoscopy Procedure Report: Colonoscopy Endoscopist: David Nicholas II, MD Referring physician: Collins Souza MD Date of Procedure: March 26, 2025 Equipment: Olympus 190 variable stiffness pediatric colonoscope Sedation: MAC sedation Indication: Mrs. Em is a 49-year-old female who is here for initial screening colonoscopy. She reports no abdominal pain, weight loss, change in her bowel habits or rectal bleeding. She does state that her maternal grandfather had colon cancer at an older age. Procedure: Prior to the procedure, a history and physical exam was performed, and patient's medications and allergies were reviewed. The risks, benefits and alternatives of the sedation and procedure were discussed with the patient. All questions were answered and informed consent was obtained. The patient was brought to the procedure room. Patient identification and proposed procedure were verified by the physician and the nurse. The patient was placed in a left lateral decubitus position and the scope was passed under direct vision. Throughout the procedure, the patient's blood pressure, pulse, and oxygen saturations were monitored continuously. The colonoscopy was accomplished without difficulty. The patient tolerated the procedure well. Findings: On digital rectal examination there was normal rectal tone. There were no external hemorrhoids. The colonoscope was introduced through the anal canal to the rectum and advanced to the cecum. The ileocecal valve and appendiceal orifice were identified. The scope was advanced a short distance into the ileum which appeared grossly normal. The scope was then withdrawn into the colon. The cecum, ascending, transverse, descending, sigmoid and rectum were grossly normal. There were no mucosal abnormalities identified. Upon retroflexion within the rectum there were grade 1 internal hemorrhoids. The preparation was excellent throughout with [place] Preparation Score of 9. The cecal time was 10 minutes. Impression: 1. Normal colonoscopy with intubation of the terminal ileum Plan: The patient will not require surveillance colonoscopy again for 10 years by ACS guidelines.
[2025-03-26 10:22] VITALS: BP 106/63; PULSE 69; RESP 16; TEMP 36.2; O2SAT 99
[2025-03-26 10:32] VITALS: BP 110/61; PULSE 58; RESP 16; O2SAT 98
[2025-03-26 10:42] VITALS: BP 107/53; PULSE 56; RESP 18; O2SAT 99
[2025-03-26 10:52] VITALS: BP 105/59; PULSE 54; RESP 18; O2SAT 99
[2025-03-26 11:15] VITALS: BP 120/70; PULSE 52; RESP 18; TEMP 36.2; O2SAT 99
== END 2025-03-26 11:15 | disposition home or self-care (01) ==
PROVIDERS: PCP Family Medicine; Visit Provider Internal Medicine Gastroenterology
PROC: 0DJD8ZZ Inspection of Lower Intestinal Tract, Via Natural or Artificial Opening Endoscopic (ICD-10-PCS; CPT 45378; principal; 2025-03-26 09:30)
DX: Z12.11 Encounter for screening for malignant neoplasm of colon (principal); K64.0 First degree hemorrhoids; K21.9 Gastro-esophageal reflux disease without esophagitis; G47.00 Insomnia, unspecified; E03.9 Hypothyroidism, unspecified; J30.9 Allergic rhinitis, unspecified; F17.290 Nicotine dependence, other tobacco product, uncomplicated; Z79.890 Hormone replacement therapy; Z79.899 Other long term (current) drug therapy; Z91.09 Other allergy status, other than to drugs and biological substances; Z88.0 Allergy status to penicillin
CPT/HCPCS: 45378; J2003; J2704

== ENCOUNTER 2025-04-19 10:49 | Outpatient (CLI) | payer BC, SELFPAY ==
--- OUTSIDE RECORDS SUMMARY | 2025-04-19 10:51 | XMS_ITS | Clinical Summary ---
Author Organization [facility] Address [address] [id number] Care Team Providers Care Meteorologist In Charge Name Role Phone AlexEv Elina CRISTINA Primary Care Provider [phone] Family History Medical History Relation Name Comments Diabetes Father Hypertension Father Relation Name Status Comments Father Social History Tobacco Use Types Packs/Day Years Used Date Smoking Tobacco: Every Day Comments Unknown Sex and Gender Information Value Date Recorded Sex Assigned at Not on file Legal Sex Female 7:08 PM EDT Gender Identity Not on file Sexual Orientation Not on file Last Filed Vital Signs Vital Sign Reading Time Taken Comments Blood Pressure - - Pulse - - Temperature - - Respiratory Rate - - Oxygen Saturation - - Inhaled Oxygen Concentration - - Weight 79.2 kg (174 lb 7.9 oz) 07/12/2015 10:09 AM EDT Height 167.6 cm (5' 6 ) 07/12/2015 10:09 AM EDT Body Mass Index 28.16 07/12/2015 10:09 AM EDT Plan of Treatment Health Maintenance Due Date Last Done Comments UKY-Depression Screening 1975 UKY-Infant/Child/Adol SDOH Screenings 1975 UKY- SDOH Screenings 1993 UKY-Adult SDOH Screenings 1993 UKY-DTaP,Tdap,and Td Vaccine s (1 - Tdap) 1994 UKY-Hepatitis B Vaccines (1 of 3 - 19+ 3-dose series) 1994 UKY-Pap Smear 1996 [facility]Y-Cervical Cancer Screening 2005 UKY-HPV/Cotest 2005 CT Colonography 2020 Colonoscopy 2020 FIT-DNA 2020 FIT 2020 FOBT 2020 Sigmoidoscopy 2020 UKY-Colorectal Cancer Screening 2020 QUP-LCRNI-03 Vaccine (3 - 2023- season) 2024 08/06/2021, 11/28/2020 UKY-Pneumococcal Vaccine: 50 + Years (1 of 1 - PCV) 2025 UKY-Zoster Vaccines (1 of 2) 2025 UKY-Influenza Vaccine (#1) 2025 HPV Vaccines Aged Out No longer eligi ble based on patient's age to complete this topic UKY-HIB Vaccines Aged Out No longer e ligible based on patient's age to complete this topic UKY-Hepatitis A Vaccines Aged Out No longer eligible based on patient's age to complete this topic UKY-IPV Vaccines Aged Out No longer e ligible based on patient's age to complete this topic UKY-Rotavirus Vaccines Aged Out No lo nger eligible based on patient's age to complete this topic Insurance [employer] Care Teams Meteorologist In Charge Relationship Specialty Start Date End Date Ev Johnson PA [address] [place] [address] PCP - General 05/28/23
--- OUTSIDE RECORDS SUMMARY | 2025-04-19 10:51 | XMS_ITS | Patient Health Record ---
Author Organization [facility] Address [address] [facility] [address] [place] [address] Care Team Providers Care Director Of Photography Name Role Phone Francine Matson Unavailable [phone] Reason For Referral No Information Problems Problem Type SNOMED Code ICD Code Onset Dates Problem Status W/U Status Risk Notes Problem Pelvic and perineal pain (209564322) Abdominal pain, suprapubic (R10.2) 12/23/19 11 Active confirmed PELVIC PAIN Problem Tobacco user (106198071) Cigarette nicotine dependence without complication (F17.210) 12/23/19 11 Active confirmed SMOKER Problem Increased frequency of urination (858400599) FOM (frequency of micturition) (R35.0) 12/23/19 11 Active confirmed URINARY FREQUENCY Problem Adult health examination (488330933) Adult general medical exam (Z00.00) 12/23/19 11 Active confirmed ANNUAL EXAM Plan Of Treatment No Information Medical (General) History Medical History History ICD Code Endometriosis Abn paps MENSTR FLOW: Light ENPRESSE-28 ORAL TABLET ULTRAM 50 MG ORAL TABLET CLONAZEPAM TABLET ANAPROX DS 550 MG ORAL TABLET N94.1 DYSPAREUNIA Surgical History Surgery Date(Month/Year) dx laparascopy with paraguard placement
--- OUTSIDE RECORDS SUMMARY | 2025-04-19 10:51 | XMS_ITS | Clinical Summary ---
Author Organization [facility] Address [address] [place] [address] Care Team Providers Care Master Rigger Name Role Phone Fani Lundberg Primary Care Provider [phone] Allergies No known active allergies Medications omeprazole (priLOSEC) 40 MG capsule 0 07/24/2018 Active levothyroxine (SYNTHROID, LEVOTHROID) 25 MCG tablet Take by mouth Daily. Active cetirizine (zyrTEC) 5 MG tablet Take 5 mg by mouth Daily. Active busPIRone (BUSPAR) 10 MG tablet Take 10 mg by mouth 2 (Two) Times a Day. Active Active Problems No known active problems Family History Medical History Relation Name Comments Diabetes Father Heart disease Father Stroke Father Relation Name Status Comments Father Social History Tobacco Use Types Packs/Day Years Used Date Smoking Tobacco: Some Days Electronic Cigarette Smokeless Tobacco: Never Alcohol Use Standard Drinks/Week Comments No 0 (1 standard drink = 0.6 oz pur e alcohol) AUDIT-C Answer Date Recorded Frequency of Alcohol Consumption Never 08/17/2018 Average Number of Drinks Not on file 018 Frequency of Binge Drinking Not on file 07/22 Abuse Screen Answer Date Recorded Unsafe at Home or Work/School Not on file Feels Threatened by Someone? Not on file 05/2023 Does Anyone Keep You from Co ntacting Others or Doint Things Outside the Home? Not on file 06/28/2023 Physical Sign of Abuse Present Not on file 1 Housing Stability Answer Date Recorded Current Living Arrangements Not on file 05/2023 Potentially Unsafe Housing Conditions Not on tc e 06/28/2023 Family and Community Support Answer Jj e Recorded Help with Day-to-Day Activities Not on file 06/28/2023 Lonely or Isolated Not on file 06/28/2023 Employment Answer Date Recorded Do you want help finding or keeping work or a su b? Not on file 06/28/2023 Disabilities Answer Date Recorded Concentrating, Remembering, or Making Decisions Difficulty Not on file 06/28/2023 Doing Errands Independently Difficulty Not on fi le 06/28/2023 Education Answer Date Recorded Help with school or training? Not on file Preferred Language Not on file 06/28/2023 Comments Unknown Sex and Gender Information Value Date Recorded Sex Assigned at Not on file Legal Sex Female 11:23 AM EDT Gender Identity Not on file Sexual Orientation Not on file Last Filed Vital Signs Vital Sign Reading Time Taken Comments Blood Pressure - - Pulse 61 08/17/2018 3:19 PM EST Temperature - - Respiratory Rate - - Oxygen Saturation 98% 08/17/2018 3:19 PM EST Inhaled Oxygen Concentration - - Weight 59.7 kg (131 lb 9.8 oz) 08/17/2018 3:19 P M EST Height 167.6 cm (5' 6 ) 08/17/2018 3:19 PM EST Body Mass Index 21.24 08/17/2018 3:19 PM EST Plan of Treatment Health Maintenance Due Date Last Done Comments Annual Gynecologic Pelvic and Breast Exam 1975 TDAP/TD VACCINES (1 - Tdap) 1994 MAMMOGRAM 2015 ANNUAL PHYSICAL 08/17/2018 HEPATITIS C SCREENING 08/17/2018 COLOGUARD 2020 COLON CANCER SCREENING 5 YEAR SIGMOIDOSCOPY 2020 COLONOSCOPY [address] CANCER SCREENING [address] COLONOGRAPHY 2020 FECAL OCCULT BLOOD TEST 2020 FIT Testing (1 year) 2020 COVID-19 Vaccine (1 - season) 2024 Pneumococcal Vaccine 50+ (1 of 1 - PCV) 2025 ZOSTER VACCINE (1 of 2) 2025 INFLUENZA VACCINE 06/20/2025 Insurance [facility] PPO Care Teams Master Rigger Relationship Specialty Start Date End Date Fani Lundberg PA [address] [facility] [address] PCP - General Family Medicine 08/17/18
--- NOTE | 2025-04-19 11:00 | CT_ITS ---
FINAL REPORT TECHNIQUE: Thin section axial images were obtained through the lungs using a low-dose technique per lung cancer screening protocol. Reconstruction images were obtained using the axial data. Exam was performed using dose reduction technique. CLINICAL HISTORY: lung cancer screening, former smoker, quit 0yrs ago, smoked 1ppd for 15 years COMPARISON: None FINDINGS: CTDLvol: 2.90 DLP: 96.38 Former smoker 15 pack year history Lungs: No consolidation. Bilateral subpleural noncalcified pulmonary nodules measuring up to 5 mm. Lymph nodes: No thoracic lymphadenopathy. Mediastinum: Heart size is normal. Pleura/pericardium: No pleural or pericardial effusion. Other: No acute abnormality in the upper abdomen. IMPRESSION: Bilateral subpleural pulmonary nodules up to 5 mm. Lung RADS: 2 Recommendation: 12 month follow-up low-dose CT. Reviewed, Interpreted and Dictated by Anne Chapa MD Transcribed by Nyla Kirby Authenticated and [facility]
== END 2025-04-19 23:59 | disposition home or self-care (01) ==
LOC: RAD 10:49
PROVIDERS: PCP Family Medicine; Visit Provider Family Medicine
DX: R91.8 Other nonspecific abnormal finding of lung field (principal); Z12.2 Encounter for screening for malignant neoplasm of respiratory organs; Z87.891 Personal history of nicotine dependence
CPT/HCPCS: 71271

== ENCOUNTER 2025-06-29 10:11 | Outpatient (CLI) | payer BC, SELFPAY ==
[2025-06-29 21:08] LABS: Hematocrit 42.0 % (37.0-47.0); Hemoglobin 13.6 g/dL (12.2-16.2); Immature Granulocytes % 0.3 %; Mean Corpuscular HGB Conc 32.4 g/dL (31.8-35.4); Mean Corpuscular Hemoglobin 28.2 pg (27.0-31.2); Mean Corpuscular Volume 87.0 fl (81-99); Nucleated Red Blood Cells % 0 %; Platelet Count 229 K/mm3 (142-424); Red Blood Count 4.83 M/mm3 (4.20-5.40); Red Cell Distribution Width-SD 43.8 fL; White Blood Count 7.6 K/mm3 (4.8-10.8)
[2025-06-29 21:41] LABS: Alanine Aminotransferase 15 U/L (12-78); Albumin Level 4.3 g/dl (3.5-5.0); Albumin/Globulin Ratio 1.7 (1.1-1.8); Alkaline Phosphatase 70 U/L (38-126); Anion Gap 15.9 mEq/L (5-15); Aspartate Amino Transferase 28 U/L (14-36); Bilirubin,Total 0.4 mg/dl (0.2-1.3); Blood Urea Nitrogen 14 mg/dl (7-17); Calcium 8.9 mg/dl (8.4-10.2); Carbon Dioxide 25 mmol/L (22.0-30.0); Chloride 103 mmol/L (98-107); Cholesterol 195 mg/dl (140-200); Creatinine,Serum 0.80 mg/dl (0.52-1.04); Estimated Glomerular Filt Rate 76 ml/min (>60); GFR (African American) 92 ML/MIN (>60); Globulin 2.5 g/dL (1.3-3.2); Glucose 81 mg/dl (74-100); HDL Cholesterol 47 mg/dl (40-60); Potassium 4.9 mmoL/L (3.5-5.1); Sodium 139 mmol/L (136-145); Total Protein,Serum 6.8 g/dl (6.3-8.2); Triglycerides 252 mg/dl (30-150)
[2025-06-29 21:58] LABS: Free T4 (Free Thyroxine) 1.34 ng/dl (0.78-2.19)
[2025-06-29 22:11] LABS: Thyroid Stimulating Hormone 4.01 uIU/mL (0.465-4.68)
--- OUTSIDE RECORDS SUMMARY | 2025-07-02 10:22 | XMS_ITS | Clinical Summary ---
Author Organization [facility] Address [address] [id number] Care Team Providers Care Franchise Sales Representative Name Role Phone AlexEv Elina CRISTINA Primary Care Provider [phone] Family History Medical History Relation Name Comments [...] 2020 Sigmoidoscopy 2020 UKY-Colorectal Cancer Screening 2020 UKY-Pneumococcal Vaccine: 50 + Years (1 of 1 - PCV) 2025 UKY-Zoster Vaccines (1 of 2) 2025 NLU-QSISE-01 Vaccine (3 - 2024- season) 2025 08/06/2021, 11/28/2020 UKY-Influenza Vaccine (#1) 2025 HPV Vaccines Aged [...] complete this topic Insurance [employer] Care Teams Franchise Sales Representative Relationship Specialty Start Date End Date Ev Johnson PA [address] [place] [address] PCP - General 05/28/23
--- OUTSIDE RECORDS SUMMARY | 2025-07-02 10:22 | XMS_ITS | Clinical Summary ---
Author Organization [facility] Address [address] [place] [address] Care Team Providers Care Director Clinical Operations Name Role Phone Fani Lundberg Primary Care Provider [phone] Allergies No known active allergies Medications omeprazole [...] TEST 2020 FIT Testing (1 year) 2020 Pneumococcal Vaccine 50+ (1 of 1 - PCV) 2025 ZOSTER VACCINE (1 of 2) 2025 INFLUENZA VACCINE 04/20/2025 Insurance [facility] PPO Care Teams Director Clinical Operations Relationship Specialty Start Date End Date Fani Lundberg [place] [facility] [address] PCP - General Family Medicine 08/17/18
--- OUTSIDE RECORDS SUMMARY | 2025-07-02 10:22 | XMS_ITS | Patient Health Record ---
Author Organization [facility] Address [address] [facility] [address] [place] [address] Care Team Providers Care Painter Interior Finish Name Role Phone Francine Matson Unavailable [phone] Reason For Referral No Information Problems Problem Type SNOMED Code ICD Code Onset Dates Problem Status W/U Status Risk Notes Problem Pelvic and perineal pain (990830811) Abdominal pain, suprapubic (R10.2) 12/23/19 11 Active confirmed PELVIC PAIN Problem Tobacco user (530610666) Cigarette nicotine dependence without complication (F17.210) 12/23/19 11 Active confirmed SMOKER Problem Increased frequency of urination (905074203) FOM (frequency of micturition) (R35.0) 12/23/19 11 Active confirmed URINARY FREQUENCY Problem Adult health examination (720772177) Adult general medical exam (Z00.00) 12/23/19 11 [...]
== END 2025-06-29 23:59 ==
LOC: LAB.DROPOF 07-02 10:12
PROVIDERS: PCP Family Medicine; Visit Provider Family Medicine
DX: E03.9 Hypothyroidism, unspecified (principal); I10 Essential (primary) hypertension; R23.2 Flushing
CPT/HCPCS: 80053; 80061; 84439; 84443; 85025

== ENCOUNTER 2025-07-01 09:05 | Outpatient (CLI) | payer BC, SELFPAY ==
[2025-07-03 08:16] LABS: FSH 8.1 mIU/mL (.)
--- OUTSIDE RECORDS SUMMARY | 2025-07-03 09:18 | XMS_ITS | Clinical Summary ---
Author Organization [facility] Address [address] [place] [address] Care Team Providers Care Director Of Cardiopulmonary Services Name Role Phone Fani Lundberg Primary Care Provider [phone] Allergies No known active allergies Medications omeprazole [...] 2) 2025 INFLUENZA VACCINE 04/20/2025 Insurance [facility] PPO Care Teams Director Of Cardiopulmonary Services Relationship Specialty Start Date End Date Fani Lundberg PA [facility] [address] PCP - General Family Medicine 08/17/18
--- OUTSIDE RECORDS SUMMARY | 2025-07-03 09:18 | XMS_ITS | Patient Health Record ---
Author Organization [facility] Address [address] [facility] [address] [place] [address] Care Team Providers Care Fiber Picker Name Role Phone Francine Matson Unavailable [phone] Reason For Referral No Information Problems Problem Type SNOMED Code ICD Code Onset Dates Problem Status W/U Status Risk Notes Problem Pelvic and perineal pain (503442423) Abdominal pain, suprapubic (R10.2) 12/23/19 11 Active confirmed PELVIC PAIN Problem Tobacco user (838803770) Cigarette nicotine dependence without complication (F17.210) 12/23/19 11 Active confirmed SMOKER Problem Increased frequency of urination (120476352) FOM (frequency of micturition) (R35.0) 12/23/19 11 Active confirmed URINARY FREQUENCY Problem Adult health examination (737488981) Adult general medical exam (Z00.00) 12/23/19 11 [...]
--- OUTSIDE RECORDS SUMMARY | 2025-07-03 09:19 | XMS_ITS | Clinical Summary ---
Author Organization [facility] Address [address] [id number] Care Team Providers Care Eligibility Counselor Name Role Phone AlexEv Elina CRISTINA Primary Care Provider Family History Medical History Relation Name Comments [...] 2025 UKY-Zoster Vaccines (1 of 2) 2025 [id number]-03 Vaccine (3 - 2024- season) 2025 08/06/2021, [...] complete this topic Insurance [employer] Care Teams Eligibility Counselor Relationship Specialty Start Date End Date Ev Johnson PA [address] [place] [address] PCP - General 05/28/23
== END 2025-07-01 23:59 ==
LOC: LAB.DROPOF 07-03 09:06
PROVIDERS: PCP Family Medicine; Visit Provider Family Medicine
DX: N95.1 Menopausal and female climacteric states (principal)
CPT/HCPCS: 83001

== ENCOUNTER 2025-07-20 12:43 | Outpatient (CLI) | payer BC, SELFPAY ==
--- OUTSIDE RECORDS SUMMARY | 2025-07-20 12:45 | XMS_ITS | Clinical Summary ---
Author Organization [facility] Address [address] [place] [address] Care Team Providers Care Advertising Sales Consultant Name Role Phone Fani Lundberg Primary Care Provider [phone] Allergies No known active allergies Medications omeprazole [...] 2) 2025 INFLUENZA VACCINE 04/20/2025 Insurance [facility] PPO Care Teams Advertising Sales Consultant Relationship Specialty Start Date End Date Fani Lundberg PA [facility] [address] PCP - General Family Medicine 08/17/18
--- OUTSIDE RECORDS SUMMARY | 2025-07-20 12:45 | XMS_ITS | Patient Health Record ---
Author Organization [facility] Address [address] [facility] [address] [place] [address] Care Team Providers Care Regional Vice President Life Sales Name Role Phone Francine Matson Unavailable [phone] Reason For Referral No Information Problems Problem Type SNOMED Code ICD Code Onset Dates Problem Status W/U Status Risk Notes Problem Pelvic and perineal pain (524069337) Abdominal pain, suprapubic (R10.2) 12/23/19 11 Active confirmed PELVIC PAIN Problem Tobacco user (750263846) Cigarette nicotine dependence without complication (F17.210) 12/23/19 11 Active confirmed SMOKER Problem Increased frequency of urination (473761849) FOM (frequency of micturition) (R35.0) 12/23/19 11 Active confirmed URINARY FREQUENCY Problem Adult health examination (818624165) Adult general medical exam (Z00.00) 12/23/19 11 [...]
--- OUTSIDE RECORDS SUMMARY | 2025-07-20 12:45 | XMS_ITS | Data Portability ---
Author Organization [facility] Address [address] [facility] [address] [place] [address] Care Team Providers Care Crm Business Analyst Name Role Phone KARAN TSANG Primary Care Provider Assessment No assessment recorded. Plan of Treatment Reminders Order Date Submit Date Provider Last Modified By Organization Details Last Modified Time Details Appointments FOLLOW UP [facility] 2024 03:10P M CIRILO ESTES MD Not available Not available Not available Lab None recorded . Referral None recorded . Procedures None recorded . Surgeries None recorded . Imaging None recorded . Medication Orders None recorded . Patient TargetsNo targets recorded. Patient InstructionsNo instructions recorded. Reason for Referral None Reported. Medical Equipment None Reported. Allergies Allergen ID Allergen Name Allergen Category Reaction Reaction Severity Criticality Documentation Date Start Date Code Code System Note Provider Name and Address Organization Details Recorded Time 180471 Product containin g penicilli n (product) medicatio n Not available Not available Not available 08/14/20162011 29799 8001 SNOMED Comme nt: Creat ed By: Yaniv Deleon Creat ed Date: 07/11 11:35 :28 AM; Not Available [facility] 6 03:40:34 Medications Name Sig Start Date Stop Date Status Note LastModified by Organization Details LastModified Time Multiple Vitamin capsule Daily active Duration: 30 days;Freque ncy: daily;Alt Frequency: prn;Medicat ion Description : multivitami n; Dosage:1; Route:oral; refills:3; Quantity:10 0 capsule Not Available Not Available Not Available levothyroxi ne active Not Available Not Available Not Available Prilosec active Not Available Not Avai lable Not Available Zyrtec active Not Available Not Availa ble Not Available clonazepam Daily active Duration: 10 days;Freque ncy: daily;Medic ation Description : clonazepam; Route:oral; refills:0; Quantity:90 pt discontinue d Not Available Not Available Not Available Vitals None Recorded Social History None recorded. Functional Status None recorded. Mental Status None recorded. Family History Nothing Reported. Medical History No medical history recorded. Gynecological HistoryNo gynecological history recorded. Obstetrics History GPAL:G 0 P 0 0 0 0 Past Encounters Encounter ID Performer Location Encounter Start Date Encounter Closed Date Diagnosis/Indication Diagnosis SNOMED-CT Code Diagnosis ICD10 Code Diagnosis IMO Codes Diagnosis Note [id number] [facility] [address] 12/21/2016 16:53:50 12/21/2016 16:53:50 [id number] CIRILO ESTES MD [address] [place] [place] [address] 01/12/2024 14:42:26 01/13/2024 04:12:20 Multiple benign melanocytic nevi 979755246 D22.5 - Benign lesions seen on exam today- SPF 30 or higher broad-spec trum sunscreen recommende d with re-applica tion every 2 hours- Discussed sun protection measures, including wide-brimm ed hat, sun-protec tive clothing, and avoidance of sun during peak hours of 10am-4pm- Avoid tanning beds as these can increase the chances of all 3 types of skin cancer- Instructed to monitor for changes and to call us for appointmen t with any changing or worrisome lesions Seborrheic keratosis 394 [id number] L82.1 - Benign overgrowth s of skin - Hereditary Senile angioma 0049692 I 78.1 - Benign blood vessel growths - Hereditary Solar lentigo 49710616 L 81.4 - Benign brown spots - Sun-induce d History of atypical nevus 9845760536 101 Z86.018 L90.5 - No evidence of recurrence today - Call with any worrisome lesions or if treated lesions return - Return at regular intervals for skin exam as recommende d Health Concerns Section Related Observation LastModified by Organization Detai ls LastModified Time None Recorded Concern Status LastModified by Organization Details LastModified Time None Recorded Advance Directives Directive None Recorded Payers Insurance Date Sequence Insurance Name Policy Number Policy Mike Covered Member ID Mike Member ID Guarantor Name 01/12/2024 1 [place] [id number] Eliz Em [id number] Eliz Em Notes Date Note Type Note Provider Name and Address Organization Details Recorded Time 01/12/2024 text/html I have a spot on my chest that's been there a few months.annual (last 03/2023)Hx AMN-L Mid BackNoted melanocytic nevi-Right Medial Great Toe CIRILO ESTES MD [address] [place], [address], [facility] 01/12/2024 15:07:35 OBGyn Episode No OBEpisode recorded.
--- OUTSIDE RECORDS SUMMARY | 2025-07-20 12:45 | XMS_ITS | Data Portability ---
Author Organization [facility] Address [address] [place] [address] Assessment No assessment recorded. Plan of Treatment Reminders Order Date Submit Date Provider Last Modified By Organization Details Last Modified Time Details Appointments None recorded. Lab CBC w/ auto diff [address] [facility]), [address] [place], [address], 12:18:34 CMP, serum or plasma [address] [facility]), [address] [place], [address], 4 12:18:35 vitamin B12 + folate, serum or blood [address] [facility]), [address] [place], [address], 4 12:18:33 iron + TIBC + ferritin, serum 2023 LAURA [facility] [address] [place], [address], 4 12:18:33 magnesium, serum or plasma 2023 LAURA [facility] [address] [place], [address], 4 12:18:36 thyroid panel, serum 2023 LAURA [facility]), [address] [facility], [place], [address], 4 12:18:35 thyroid peroxidase (tpo) Ab, serum 2023 LAURA [facility]), [address] [facility], [place], [address], 12:18:37 tsi (thyroid-st imulating immunoglobu mindi), serum 2023 LAURA [facility]), [address] [facility], [place], [address], 12:18:36 Referral None recorded. Procedures None recorded. Surgeries None recorded. Imaging electromyog ronit + nerve conduction study - [facility] LOCATION [address] [facility], [address], [place], [address], 14:23:32 ankle brachial index - first available appt 2023 [facility] [address], [place], [address], 09:40:01 Medication Orders Klonopin 1 mg tablet 2023 [facility], [address], [id number], 4 09:33:43 Flonase Allergy Relief 50 mcg/actuati on nasal spray,suspe nsion 2023 [facility], [address], [id number], 4 16:27:36 montelukast 10 mg tablet 102023 [facility] #95665, [address] [facility] [address], [place], [id number], 16:27:37 Klonopin 1 mg tablet 2023 [facility] #55643, [address] [facility] [address], [place], [id number], 4 16:27:54 omeprazole 40 mg capsule,del ayed release 2023 [facility], [address] [facility] [address], [place], [id number], 4 16:27:39 nystatin 100,000 unit/mL oral suspension 2023 [facility] #00087, [address] [facility] [address], [place], [id number], 09:12:38 hydroxyzine pamoate 25 mg capsule 2023 [facility] #97764, [address] [facility] [address], [place], [id number], 4 16:27:39 cyclobenzap rine 5 mg tablet 2023 [facility], [address] [facility] [address], [place], [id number], 16:27:38 levothyroxi ne 100 mcg tablet 2023 [facility] #67706, [address] [facility] [address], [place], [id number], 4 16:27:38 Patient TargetsNo targets recorded. Patient Instructions Encounter Date Encounter Id Patient Instructions Last Modified By Organization Details Last Modified Time 08/18/2024 [id number] learning about healthy weight [id number] Not available 08/18/2024 09:19:22 Reason for Referral None Reported. Results Created Date Observation Date Name Description Value Unit Range Abnormal Flag Note LastModifiedBy Organization Detail LastModifiedTime 07/17/2007/19/2024 FE+TI BC+FE R iron bind.cap.(TI BC) 332 ug/dL 250-45 0 normal Not Available [facility] ([facility]) [address] [place], [address], 07/24/2024 12:18:32 07/17/2007/19/2024 FE+TI BC+FE R UIBC 289 ug/dL 131-42 5 normal Not Available [facility] ([facility]) [address] [place], [address], 07/24/2024 12:18:32 07/17/2007/19/2024 FE+TI BC+FE R iron 43 ug/dL 27-159 normal Not Available [facility] ([facility]) [address] [place], [address], 07/24/2024 12:18:32 07/17/20 24 07/19/2024 FE+TI BC+FE R iron saturation 13 % 15-55 below low normal Not Available [facility] ([facility]) [address] [place], [address], 07/24/2024 12:18:32 07/17/20 24 07/19/2024 FE+TI BC+FE R ferritin 25 NG/mL 15-150 normal Not Available [facility] ([facility]) [address] [place], [address], 07/24/2024 12:18:32 07/17/20 24 07/19/2024 VITAM IN B12+F OLATE vitamin B12 333 pg/mL 232-12 45 normal Not Available [facility] ([facility]) [address] [place], [address], 07/24/2024 12:18:33 07/17/2007/19/2024 VITAM IN B12+F OLATE folate (folic acid), serum 10.4 NG/mL >3.0 normal A serum folat e karen ntrat ion of less than 3.1 ng/mL is consi dered to repre sent clini sally defic iency . Not Available [facility] ([facility]) [address] [facility], [place], [address], 07/24/2024 12:18:33 07/17/2007/21/2024 VITAM IN B12+F OLATE homocyst(E)i ne 9.3 umol/ L 0.0-14 .5 Not Available [facility] ([facility]) [address] [facility], [place], [address], 07/24/2024 12:18:33 07/17/2007/23/2024 VITAM IN B12+F OLATE methylmaloni c acid, serum 124 nmol/ L 0-378 Not Available [facility] ([facility]) [address] [facility], [place], [address], 07/24/2024 12:18:33 07/17/20 24 07/19/2024 CBC WITH DIFFE RENTI AL/PL ATELE T WBC 6.0 x10e3 /uL 3.4-10 .8 normal Not Available [facility] ([facility]) [address] [facility], [place], [address], 07/24/2024 12:18:34 07/17/2007/19/2024 CBC WITH DIFFE RENTI AL/PL ATELE T RBC 4.76 x10e6 /uL 3.77-5 .28 normal Not Available [facility] ([facility]) [address] [facility], [place], [address], 07/24/2024 12:18:34 07/17/20 24 07/19/2024 CBC WITH DIFFE RENTI AL/PL ATELE T hemoglobin 13.4 g/dL 11.1-1 5.9 normal Not Available [facility] ([facility]) [address] [place], [address], 07/24/2024 12:18:34 07/17/20 24 07/19/2024 CBC WITH DIFFE RENTI AL/PL ATELE T hematocrit 43.4 % 34.0-4 6.6 normal Not Available [facility] ([facility]) [address] [place], [address], 07/24/2024 12:18:34 07/17/2007/19/2024 CBC WITH DIFFE RENTI AL/PL ATELE T MCV 91 fL 79-97 normal Not Available [facility] ([facility]) [address] [place], [address], 07/24/2024 12:18:34 07/17/2007/19/2024 CBC WITH DIFFE RENTI AL/PL ATELE T MCH 28.2 pg 26.6-3 3.0 normal Not Available [facility] ([facility]) [address] [place], [address], 07/24/2024 12:18:34 07/17/2007/19/2024 CBC WITH DIFFE RENTI AL/PL ATELE T MCHC 30.9 g/dL 31.5-3 5.7 below low normal Not Available [facility] ([facility]) [address] [place], [address], 07/24/2024 12:18:34 07/17/2007/19/2024 CBC WITH DIFFE RENTI AL/PL ATELE T RDW 13.4 % 11.7-1 5.4 Not Available [facility] ([facility]) [address] [place], [address], 07/24/2024 12:18:34 07/17/2007/19/2024 CBC WITH DIFFE RENTI AL/PL ATELE T platelets 258 x10e3 /uL 150-45 0 normal Not Available [facility] ([facility]) [address] [facility], [place], [address], 07/24/2024 12:18:34 07/17/20 24 07/19/2024 CBC WITH DIFFE RENTI AL/PL ATELE T neutrophils 67 % not estab. normal Not Available [facility] ([facility]) [address] [facility], [place], [address], 07/24/2024 12:18:34 07/17/2007/19/2024 CBC WITH DIFFE RENTI AL/PL ATELE T lymphs 22 % not estab. normal Not Available [facility] ([facility]) [address] [facility], [place], [address], 07/24/2024 12:18:34 07/17/20 24 07/19/2024 CBC WITH DIFFE RENTI AL/PL ATELE T monocytes 9 % not estab. normal Not Available [facility] ([facility]) [address] [facility], [place], [address], 07/24/2024 12:18:34 07/17/20 24 07/19/2024 CBC WITH DIFFE RENTI AL/PL ATELE T eos 1 % not estab. normal Not Available [facility] ([facility]) [address] [facility], [place], [address], 07/24/2024 12:18:34 07/17/20 24 07/19/2024 CBC WITH DIFFE RENTI AL/PL ATELE T basos 1 % not estab. normal Not Available [facility] (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) [address] [facility], [place], [address], 07/24/2024 12:18:34 07/17/2007/19/2024 CBC WITH DIFFE RENTI AL/PL ATELE T neutrophils (absolute) 4.0 x10e3 /uL 1.4-7. 0 normal Not Available [facility] ([facility]) [address] [facility], [place], [address], 07/24/2024 12:18:34 07/17/2007/19/2024 CBC WITH DIFFE RENTI AL/PL ATELE T lymphs (absolute) 1.3 x10e3 /uL 0.7-3. 1 normal Not Available [facility] ([facility]) [address] [facility], [place], [address], 07/24/2024 12:18:34 07/17/2007/19/2024 CBC WITH DIFFE RENTI AL/PL ATELE T monocytes(ab solute) 0.6 x10e3 /uL 0.1-0. 9 normal Not Available [facility] ([facility]) [address] [facility], [place], [address], 07/24/2024 12:18:34 07/17/20 24 07/19/2024 CBC WITH DIFFE RENTI AL/PL ATELE T eos (absolute) 0.1 x10e3 /uL 0.0-0. 4 normal Not Available [facility] ([facility]) [address] [facility], [place], [address], 07/24/2024 12:18:34 07/17/2007/19/2024 CBC WITH DIFFE RENTI AL/PL ATELE T baso (absolute) 0.1 x10e3 /uL 0.0-0. 2 normal Not Available [facility] ([facility]) [address] [facility], [place], [address], 07/24/2024 12:18:34 07/17/2007/19/2024 CBC WITH DIFFE RENTI AL/PL ATELE T immature granulocytes 0 % not estab. Not Available [facility] ([facility]) [address] [facility], [place], [address], 07/24/2024 12:18:34 07/17/20 24 07/19/2024 CBC WITH DIFFE RENTI AL/PL ATELE T immature grans (abs) 0.0 x10e3 /uL 0.0-0. 1 Not Available [facility] (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) [address] [facility], [place], [address], 07/24/2024 12:18:34 07/17/20 24 07/19/2024 COMP. METAB OLIC PANEL (14) glucose 80 mg/dL 70-99 normal Not Available [facility] ([facility]) [address] [facility], [place], [address], 07/24/2024 12:18:34 07/17/20 24 07/19/2024 COMP. METAB OLIC PANEL (14) BUN 12 mg/dL 6-24 normal Not Available [facility] ([facility]) [address] [facility], [place], [address], 07/24/2024 12:18:34 07/17/20 24 07/19/2024 COMP. METAB OLIC PANEL (14) creatinine 0.76 mg/dL 0.57-1 .00 normal Not Available [facility] ([facility]) [address] [facility], [place], [address], 07/24/2024 12:18:34 07/17/20 24 07/19/2024 COMP. METAB OLIC PANEL (14) eGFR 96 mL/mi n/1.7 3 >59 normal Not Available [facility] ([facility]) [address] [facility], [place], [address], 07/24/2024 12:18:34 07/17/20 24 07/19/2024 COMP. METAB OLIC PANEL (14) BUN/creatini ne ratio 16 9-23 normal Not Available [facility] ([facility]) [address] [facility], [place], [address], 07/24/2024 12:18:34 07/17/20 24 07/19/2024 COMP. METAB OLIC PANEL (14) sodium 141 mmol/ L 134-14 4 normal Not Available [facility] ([facility]) [address] [facility], [place], [address], 07/24/2024 12:18:34 07/17/20 24 07/19/2024 COMP. METAB OLIC PANEL (14) potassium 4.0 mmol/ L 3.5-5. 2 normal Not Available [facility] ([facility]) [address] [facility], [place], [address], 07/24/2024 12:18:34 07/17/20 24 07/19/2024 COMP. METAB OLIC PANEL (14) chloride 104 mmol/ L 96-106 normal Not Available [facility] ([facility] [facility]) [address] [facility] [place], [address], 07/24/2024 12:18:34 07/17/20 24 07/19/2024 COMP. METAB OLIC PANEL (14) carbon dioxide, total 23 mmol/ L 20-29 normal Not Available [facility] ([facility] [facility]) [address] [facility], [place], [address], 07/24/2024 12:18:34 07/17/20 24 07/19/2024 COMP. METAB OLIC PANEL (14) calcium 8.6 mg/dL 8.7-10 .2 below low normal Not Available [facility] ([facility]) [address] [facility], [place], [address], 07/24/2024 12:18:34 07/17/2007/19/2024 COMP. METAB OLIC PANEL (14) protein, total 6.7 g/dL 6.0-8. 5 normal Not Available [facility] ([facility]) [address] [place], [address], 07/24/2024 12:18:34 07/17/2007/19/2024 COMP. METAB OLIC PANEL (14) albumin 4.4 g/dL 3.9-4. 9 normal Not Available [facility] ([facility]) [address] [facility] [place], [address], 07/24/2024 12:18:34 07/17/2007/19/2024 COMP. METAB OLIC PANEL (14) globulin, total 2.3 g/dL 1.5-4. 5 Not Available [facility] ([facility]) [address] [facility], [place], [address], 07/24/2024 12:18:34 07/17/2007/19/2024 COMP. METAB OLIC PANEL (14) bilirubin, total <0.2 mg/dL 0.0-1. 2 Not Available [facility] ([facility]) [address] [facility] [place] [place], [address], 07/24/2024 12:18:34 07/17/20 24 07/19/2024 COMP. METAB OLIC PANEL (14) alkaline phosphatase 55 IU/L 44-121 normal Not Available [facility]) [address] [facility] [place], [address], 07/24/2024 12:18:34 07/17/20 24 07/19/2024 COMP. METAB OLIC PANEL (14) AST (SGOT) 20 IU/L 0-40 normal Not Available [facility] ([facility]) [address] [place], [address], 07/24/2024 12:18:34 07/17/20 24 07/19/2024 COMP. METAB OLIC PANEL (14) ALT (SGPT) 12 IU/L 0-32 normal Not Available [facility] ([facility]) [address] [place], [address], 07/24/2024 12:18:34 07/17/2007/19/2024 THYRO ID PANEL WITH TSH TSH 2.020 uIU/m L 0.450- 4.500 normal Not Available [facility] ([facility]) [address] [place], [address], 07/24/2024 12:18:35 07/17/20 24 07/19/2024 THYRO ID PANEL WITH TSH thyroxine (T4) 11.9 ug/dL 4.5-12 .0 normal Not Available [facility] ([facility]) [address] [place], [address], 07/24/2024 12:18:35 07/17/20 24 07/19/2024 THYRO ID PANEL WITH TSH T3 uptake 24 % 24-39 normal Not Available [facility] ([facility]) [address] [place], [address], 07/24/2024 12:18:35 07/17/20 24 07/19/2024 THYRO ID PANEL WITH TSH free thyroxine index 2.9 1.2-4. 9 normal Not Available [facility] ([facility]) [address] [place], [address], 07/24/2024 12:18:35 07/17/20 24 07/22/2024 THYRO ID STIM IMMUN OGLOB ULIN thyroid stim immunoglobul in <0.10 IU/L 0.00-0 .55 Not Available [facility] ([facility]) [address] [place], [address], 07/24/2024 12:18:36 07/17/2007/19/2024 MAGNE SIUM magnesium 2.2 mg/dL 1.6-2. 3 normal Not Available [facility] ([facility]) [address] [place], [address], 07/24/2024 12:18:36 07/17/2007/19/2024 THYRO ID PEROX IDASE (TPO) AB thyroid peroxidase (tpo) Ab 10 IU/mL 0-34 normal Not Available [facility] ([facility]) [address] [facility], [place], [address], 07/24/2024 12:18:37 08/31/2008/25/2024 ankle brach ial index No observ ation record ed. [address] [facility] [address], [place], [address], 08/31/2024 09:57:22 Result Notes None recorded. Problems Name Problem SNOMED Code Status Onset Date Resolution Date Notes Provider Name and Address Organization Details Recorded Time Generalized anxiety disorder 20182472 Active 2023 IBETH Morrison [address] [place] [address], [address], [employer] 10:07:45 Insomnia 224165965 Active 2023 IBETH Morrison [address] [place] [address], [address] 8, [employer] 10:07:38 Hypothyroidism 66644754 Active 2023 IBETH Morrison [address] [place] [address], [address] 8, [employer] 10:07:47 Allergic rhinitis 81989085 Active 2023 IBETH Morrison [address] [place] [address], [address] 8, [employer] 10:07:25 Spasm of back muscles 391035239 Active 2023 IBETH Morrison [address] [place] [address], [address], [employer] 4 10:07:53 Gastroesophage al reflux disease 224092848 Active 2023 IBETH Morrison [address] [place] [address], [address] 8, [employer] 4 10:07:32 Mild memory disturbance 281903099 Active 2023 IBETH Morrison [address] [place] [address], [address] 8, [employer] 16:14:54 Candidiasis of mouth 25706677 Active 2023 IBETH Morrison [address] [place] [address], [address] [place] [address] 8, [employer] 4 16:15:36 Pain in left lower limb 786321239 Active 2023 IBETH Morrison [address] [place] [address], [address] [place] [address] 8, [employer] 09:33:08 Problem Notes None recorded. Procedures Surgical History Date Name Laterality Status Provider Name and Address Organization Details Recorded Time 09/20/19 23 Most Recent Mammogram completed [employer] 07/17/2024 15:57:35 Hysterectomy completed [employer] 07/17/2024 15:57:36 Imaging Results None recorded. Procedure Notes None recorded. Medical Equipment None Reported. Allergies Allergen ID Allergen Name Allergen Category Reaction Reaction Severity Criticality Documentation Date Start Date Code Code System Note Provider Name and Address Organization Details Recorded Time 73634 Product containin g penicilli n (product) medicatio n itching rash Not available Not available Not available 07/17/2024 12960 8001 SNOMED Anya Vice [facility], [employer] 15:57:35 Medications Name Sig Start Date Stop Date Status Note LastModified by Organization Details LastModified Time promethazin e-DM 6.25 mg-15 mg/5 mL oral syrup TAKE 5 ML BY MOUTH EVERY 4 TO 6 HOURS NEEDED FOR COUGH 07/17 completed Not Available Not Available Not Available nystatin 100,000 unit/mL oral suspension Take 10 mL 4 times a day by oral route as directed for 10 days, for mouth irritatio n. 08/18 completed Not Available Not Available Not Available azithromyci n 250 mg tablet 07/17 completed Not Available Not Available Not Available fluconazole 150 mg tablet TAKE 1 TABLET BY MOUTH EVERY OTHER DAY FOR 6 DAYS 07/17 completed Not Available Not Available Not Available prednisone 20 mg tablet TAKE 1 TABLET BY MOUTH TWICE DAILY WITH FOOD OR MILK FOR 5 DAYS 07/17 completed Not Available Not Available Not Available clonazepam 1 mg tablet TAKE 1 TABLET BY MOUTH EVERY DAY AT BEDTIME FOR SLEEP 2024 active Not Available Not Available Not Avai lable sulfamethox azole 800 mg-trimetho prim 160 mg tablet TAKE 1 TABLET BY MOUTH TWICE DAILY FOR 10 DAYS 07/17 completed Not Available Not Available Not Available omeprazole 40 mg capsule,del ayed release Take 1 capsule every day by oral route as directed for 90 days, for heartburn . 2023 active Not Available Not Available Not Avai lable tramadol 50 mg tablet TAKE 1 TABLET BY MOUTH EVERY 6 HOURS FOR 5 DAYS NEEDED FOR PAIN 07/17 completed Not Available Not Available Not Available levothyroxi ne 100 mcg tablet TAKE 1 TABLET BY MOUTH EVERY DAY DIRECTED FOR HYPOTHYRO IDISM 2024 active Not Available Not Available Not Avai lable montelukast 10 mg tablet TAKE 1 TABLET BY MOUTH EVERY DAY DIRECTED FOR ALLERGIES 2024 active Not Available Not Available Not Avai lable mupirocin 2 % topical ointment APPLY TOPICALLY TO AFFECTED AREA UP TO TWICE A DAY FOR CELLULITI S FOR 3 WEEKS 07/17 completed Not Available Not Available Not Available levofloxaci n 500 mg tablet TAKE 1 TABLET BY MOUTH ONCE DAILY FOR 7 DAYS 07/17 completed Not Available Not Available Not Available methylpredn isolone 4 mg tablets in a dose pack FOLLOW PACKAGE DIRECTION S 07/17 completed Not Available Not Available Not Available fluticasone propionate 50 mcg/actuati on nasal spray,suspe nsion SHAKE LIQUID AND USE 2 SPRAYS IN EACH NOSTRIL EVERY DAY DIRECTED FOR ALLERGIES active Not Available Not Available No t Available doxycycline hyclate 100 mg tablet TAKE 1 TABLET BY MOUTH TWICE DAILY FOR 10 DAYS 07/17 completed Not Available Not Available Not Available hydroxyzine pamoate 25 mg capsule TAKE 1 CAPSULE BY MOUTH EVERY 8 HOURS NEEDED FOR ANXIETY active Not Available Not Available No t Available cyclobenzap rine 5 mg tablet TAKE 1 TABLET BY MOUTH EVERY DAY AT BEDTIME FOR MUSCLE SPASM 2024 active Not Available Not Available Not Avai lable bupropion HCl XL 150 mg 24 hr tablet, extended release TAKE 1 TABLET BY MOUTH DAILY 07/17 completed Not Available Not Available Not Available nitrofurant oin monohydrate /macrocryst als 100 mg capsule TAKE 1 CAPSULE BY MOUTH EVERY 12 HOURS WITH MEAL/FOOD FOR 7 DAYS 07/17 completed Not Available Not Available Not Available Vitals Date Recorded Body weight Body mass index (BMI) Body height Oxygen saturation Oxygen saturation in Arterial blood by Pulse oximetry Heart rate Systolic And Diastolic Provider Name and Address Organization Details Last Updated DateTime 4 28085.9 8 g 27.4 kg/m2 167.64 cm 95 % 95 % 69 /min 131/83 mm[Hg] Anya Gallegos [employer] 15:57:48 Date Recorded Body height Body mass index (BMI) Body weight Heart rate Oxygen saturation Oxygen saturation in Arterial blood by Pulse oximetry Systolic And Diastolic Provider Name and Address Organization Details Last Updated DateTime 4 167.64 cm 27.7 kg/m2 66865.1 g 64 /min 98 % 98 % 117/77 mm[Hg] Harriet Walters [employer] 4 09:16:43 Social History Question Answer Notes LastModified by Organizat ion Details LastModified Time Tobacco Smoking Status Former Smoker Anya Gallegos [facility] [employer] 07/17/2024 15:57:36 Do You Have An Advance Directive? No Information not available 07/17/2024 Is Your Home Air Conditioned? Yes Information not available 07/17/2024 If You Are , What Was Your Level Of Alcohol Consumption Prior To ? None Information not available 07/17/2024 How Many Years Have You Consumed Alcohol? 20 Information not available 07/17/2024 Do You Wear A Helmet When Biking? Yes Information not available 07/17/2024 Are You Blind Or Do You Have Difficulty Seeing? No Information not available 07/17/2024 What Is Your Level Of Caffeine Consumption? 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 No Information not available 07/17/2024 Are You Deaf Or Do You Have Serious Difficulty Hearing? No Information not available 07/17/2024 What Type Of Diet Are You Following? REGULAR Information not available 07/17/2024 Who Is Your Employer? [employer] Information not available 07/17/2024 Have There Been Any Changes To Your Family Or Social Situation? No Information no t available 07/17/2024 When Did You Quit Smoking? 6-10yearssinc elastcigarett e Information not available 07/17/2024 Are There Any Guns Present In Your Home? Yes Information not available 07/17/2024 Which Of Your Hands Is Dominant? Right Information not available 07/17/2024 What Is Your Home Situation? Both Parents Information not available 07/17/2024 Do You Have A Medical Power Of Title Insurance Examiner? No Information not available 07/17/2024 What Was The Date Of Your Most Recent Tobacco Screening? 08/18/2024 [email or web address] Information not available 08/18/2024 Have You Ever Been Counseled For Unhealthy Alcohol Use? No Information not available 07/17/2024 Do You Have Any Pets? Yes Information not available 07/17/2024 Do You Use Protection During Sex? No Information not available 07/17/2024 What Is Your Relationship Status? Information not available 07/17/2024 Have You Repeated Any Grades? No Information not available 07/17/2024 Do You Use Your Seat Belt Or Car Seat Routinely? Yes Information not available 07/17/2024 Are You Sexually Active? Yes Information not available 07/17/2024 Do You Have Any Siblings? Yes Information not available 07/17/2024 Do You Have Smoke And Carbon Monoxide Detectors In Your Home? Yes Information not available 07/17/2024 Are You Passively Exposed To Smoke? No Information no t available 07/17/2024 Are There Any Smokers In Your House? No Information not available 07/17/2024 Do You Participate In Social Media? Yes Information not available 07/17/2024 Do You Use Sunscreen Routinely? Yes Information not available 07/17/2024 Has Tobacco Cessation Counseling Been Provided? Yes Information not available 07/17/2024 On What Date Was Tobacco Cessation Counseling Provided? 07/17/2024 Information not available 07/17/2024 Have You Recently Traveled Abroad? No Information not available 07/17/2024 Do You Have Difficulty Walking Or Climbing Stairs? No Information not available 07/17/2024 Are You Currently In School? No Information not available 07/17/2024 Do You Have Any Dietary Restrictions? No Information not available 07/17/2024 Sex: Female Functional Status Question Answer Note LastModified by Organizat ion Details LastModified Time Do you use any illicit or recreational drugs? No Information not available 07/17/2024 Do you or have you ever used any other forms of tobacco or nicotine? Yes Information not available 07/17/2024 What is your level of alcohol consumption? Occasional Information not available 07/17/2024 Do you or have you ever used smokeless tobacco? Never used smokeless tobacco Information not available 07/17/2024 Are you currently employed? Yes Information not available 07/17/2024 Do you have transportation difficulties? No Information not available 07/17/2024 Are you able to walk independently without assistance or assistive devices? YESWOREST Information not available 07/17/2024 Do you have difficulty doing errands alone? No Information not available 07/17/2024 Are you able to care for yourself independently? Yes Information not available 07/17/2024 Do you have difficulty dressing, bathing, grooming, or toileting? No Information not available 07/17/2024 Do you or have you ever used e-cigarettes or vape? Current user of electronic cigarettes Information not available 07/17/2024 What is your exercise level? None Information not available 07/17/2024 Mental Status Question Answer Note LastModified by Organizat ion Details LastModified Time Do you feel stressed (tense, restless, nervous, or anxious, or unable to sleep at night)? [id number] Information not available 07/17/2024 Do you have difficulty concentrating, remembering or making decisions? Yes Information no t available 07/17/2024 Are you or have you been involved with bullying? No Information not available 07/17/2024 Family History Relationship Description Onset Age of this Age Resolved Age Notes LastModified by Organization Details LastModified Time Maternal Grandfather Malignant neoplasm of colon Not available 2023 15:57:35 Father Hypercholest erolemia Not available 2023 15:57:35 Father Hypertensive disorder Not available 2023 15:57:35 Father Heart disease Not available 2023 15:57:35 Father Diabetes mellitus Not available 2023 15:57:35 Medical History Condition Response Allergies (Food, seasonal, environmental ) Y Coronary Artery Disease N Other N Gout N Blood Diseases N Kidney Stones N Hyperthyroidism N Blood Transfusion N Breast Cancer N Emergency room visit since last appointm ent. N Lung Disease N COPD N Depression N Dermatologic Disorders N Hypothyroidism N Defects or Inherited Disease N Developmental or Behavioral Disorders N Breast Problem N Difficulty Swallowing N Anesthesia Complications N History of STI N Meniere's disease N Anxiety Disorder N Muscle, Joint, or Bone Problems N Autoimmune disease N Vision or Eye Problems N Arthritis N Polyps N Infertility N Mental Disorder N Congenital Anomalies N Acid Reflux (GERD) Y Cancer N Stroke N Neurologic/Epilepsy N Endometriosis N Bladder or Kidney Problems N High Cholesterol N Liver Disease N Psychiatric/Mental Health Condition N Organ Transplant N Dialysis N Schizophrenia N Fibromyalgia N Headaches Y Kidney Disease N Allergies/Hayfever N Heart Problems N Ear or Hearing Problems N Hospitalizations N Learning Disorder N Artificial Joints N Thyroid Problems Y GI Problems N Acne N ADD/ADHD N Eating Disorder N Anemia N Constipation N Mental Illness N Diabetes N Ovarian Cancer N Bedwetting N Hepatitis/Liver Disease N Tuberculosis N Eczema N Abuse/Domestic Violence N Diverticulitis N Asthma N Trauma/Violence N Substance Abuse N Reflux/GERD N Depression/ depression N Hepatitis N Heart Disease N Pulmonary Embolism N Tourette Syndrome N Chronic Ear Infections N Pre-Eclampsia N Hypertension N Chicken Pox N Autism Spectrum Disorder (ASD) N Osteoporosis N Thrombophilias N Gynecological History Statement/Question Response Menses Monthly N HPV Vaccine N Date of Last Pap Smear Most Recent Mammogram 09/20/2022 Age at First Child 22 Obstetrics History GPAL:G 0 P 0 0 0 0 Immunizations Vaccine Type Date Status Note Provider Nam e and Address Organization Details Recorded Time COVID-19, mRNA, LNP-S, PF, 100 mcg/0.5mL dose or 50 mcg/0.25mL dose 08/06/2021 completed Harriet Walters [facility] [place] [facility]. 08/18/2024 09:10:41 COVID-19 vaccine, vector-nr, rS-Ad26, PF, 0.5 mL 11/28/2020 completed Harriet kumari [place] [facility] [place]. 08/18/2024 09:10:41 Past Encounters Encounter ID Performer Location Encounter Start Date Encounter Closed Date Diagnosis/Indication Diagnosis SNOMED-CT Code Diagnosis ICD10 Code Diagnosis IMO Codes Diagnosis Note [id number] IBETH Morrison [facility] [address] [place] [address] 07/17/2024 15:47:48 07/17/2024 16:37:28 Insomnia 692852224 G47.00 Generalize d anxiety disorder 73662896 F41.1 Hypothyroidism 30831302 E03.9 Allergic rhinitis 515889 04 J30.9 Gastroesop hageal reflux disease 559767600 K21.9 Spasm of back muscles 20 3223667 M62.830 Mild memor y disturbance 076963740 R41.3 Candidiasis of mouth 797 65659 B37.0 [id number] IBETH Morrison [facility] [address] [place] [address] 08/18/2024 08:45:13 08/18/2024 09:31:21 Body mass index 25-29 - overweight 070468773 Z68.27 Generalize d anxiety disorder 05202550 F41.1 Insomnia 006371098 G47.0 0 Pain in le ft lower limb 894957759 M79.605 Health Concerns Section Related Observation LastModified by Organization Detai ls LastModified Time None Recorded Concern Status LastModified by Organization Details LastModified Time None Recorded Advance Directives Directive N: Payers Insurance Date Sequence Insurance Name Policy Number Policy Mike Covered Member ID Mike Member ID Guarantor Name 08/21/2024 1 [facility] ([facility]) [id number] Elizleonela Em [id number] Eliz Em Notes Date Note Type Note Provider Name and Address Organization Details Recorded Time 07/17/2024 text/html Patient presents to [facility] care. Former patient of mine.Patient has history of anxiety, insomnia. Due for refills on Klonopin. Has been out for about a month and cannot sleep without it.Patient vapes. Has tried to quit without success. Has had soreness of inner cheeks and tongue for a few weeks like she has thrush.She feels like her neck is swollen at times. She has had some numbness and tingling in her cheeks. She does clench her teeth at times. She also feels like she has brain fog. IBETH Morrison [address] [place] [address], [phone], [place] [facility] 07/17/2024 17:27:15 08/18/2024 text/html Patient feels pressure and tightness in her left ankle for the past month or so. Sometimes has sharp shooting pain across the top of her foot. Feels like her ankle is being compressed. Like someone is squeezing it. No swelling. No injury. Seems worse when she has her feet elevated. Has nearly fallen 2-3 times but doesn't feel like her ankle/foot is dragging or anything like that.Also due for refills on Klonopin. IBETH Morrison [address] [place] [address], [place], [address], [facility] 08/18/2024 10:36:00 OBGyn Episode No OBEpisode recorded.
--- OUTSIDE RECORDS SUMMARY | 2025-07-20 12:45 | XMS_ITS | Clinical Summary ---
Author Organization [facility] Address [address] [id number] Care Team Providers Care Manufacturing Test Technician Name Role Phone AlexEv Elina CRISTINA Primary [...] 2025 UKY-Zoster Vaccines (1 of 2) 2025 [id number] Vaccine (3 - 2024- season) 2025 08/06/2021, [...] complete this topic Insurance SARMAD Care Teams Manufacturing Test Technician Relationship Specialty Start Date End Date Ev Johnson PA [address] [place] [address] PCP - General 05/28/23
--- NOTE | 2025-07-20 13:00 | US_ITS ---
FINAL REPORT TECHNIQUE: Real-time grayscale and color ultrasound of the thyroid was performed. CLINICAL HISTORY: enlarged thryoid COMPARISON: None FINDINGS: The thyroid gland measures 30 x 13 x 15 mm on the right and 40 x 14 x 10 mm on the left. The isthmus measures 3 mm. The parenchyma is unremarkable . Nodules: There is a 6 mm nodule in the isthmus, hypoechoic, ovoid, and solid consistent with a TR 4 nodule. IMPRESSION: TR 4 isthmus nodule with no follow-up required per TI-RADS criteria. Reviewed, Interpreted and Dictated by Max Rodriguez MD Transcribed by Nyla Kirby Authenticated and [facility]
== END 2025-07-20 23:59 | disposition home or self-care (01) ==
LOC: RAD 12:43
PROVIDERS: PCP Family Medicine; Visit Provider Family Medicine
DX: E01.0 Iodine-deficiency related diffuse (endemic) goiter (principal)
CPT/HCPCS: 76536

== ENCOUNTER → 2025-09-10 06:11 | Outpatient (CLI) | payer BC, SELFPAY ==
--- OUTSIDE RECORDS SUMMARY | 2025-09-10 06:13 | XMS_ITS | Data Portability ---
Author Organization [facility] Address [address] [place] [address] Care Team Providers Care Mine Surveyor Name Role Phone KARAN TSANG Primary Care Provider Assessment No assessment recorded. Plan of Treatment Reminders Order Date Submit Date Provider Last Modified By Organization Details Last Modified Time Details Appointments DERM ESTABLISH ED 2025 01:40P M CIRILO ETSES MD Not available Not available Not available Lab None recorded. Referral None recorded. Procedures None recorded. Surgeries None recorded. Imaging None recorded. Medication Orders None recorded. Patient TargetsNo targets recorded. Patient InstructionsNo instructions recorded. Reason for Referral None Reported. Medical Equipment None Reported. Allergies Allergen ID Allergen Name Allergen Category Reaction Reaction Severity Criticality Documentation Date Start Date Code Code System Note Provider Name and Address Organization Details Recorded Time 050752 Product containin g penicilli n (product) medicatio n Not available Not available Not available 08/14/20162011 14898 8001 SNOMED Comme nt: Creat ed By: Yaniv Deleon Creat ed Date: 07/11 11:35 :28 AM; Not [facility] 03:40:34 Medications Name Sig Start Date [...] ICD10 Code Diagnosis IMO Codes Diagnosis Note [id number] QM[place] [address] 12/21/2016 16:53:50 12/21/2016 16:53:50 [id number] CIRILO ESTES MD [address] [address] [place] [address] 01/12/2024 14:42:26 01/13/2024 04:12:20 Multiple benign melanocytic nevi 626139477 D22.5 - Benign lesions seen on exam [...] changing or worrisome lesions Seborrheic keratosis 394 687932 L82.1 - Benign overgrowth s of skin - Hereditary Senile angioma 3864879 I 78.1 - Benign blood vessel growths - Hereditary Solar lentigo 26456847 L 81.4 - Benign brown spots - Sun-induce d History of atypical nevus 9287632717 101 Z86.018 L90.5 - No evidence of [...] Member ID Mike Member ID Guarantor Name 08/20/2025 1 [employer] [id number] Eliz Em [id number] 05 Eliz Em Notes Date Note Type Note Provider Name and Address Organization Details Recorded Time 01/12/2024 text/html I have a spot on my chest that's been there a few months.annual (last 03/2023)Hx AMN-L Mid BackNoted melanocytic nevi-Right Medial Great Toe CIRILO ESTES MD [address] [place], [address], [facility] 01/12/2024 15:07:35 OBGyn Episode No OBEpisode recorded.
--- OUTSIDE RECORDS SUMMARY | 2025-09-10 06:13 | XMS_ITS | Patient Health Record ---
Author Organization [facility] [place] Address [address] [facility] [address] [place] [address] Care Team Providers Care Taping Supervisor Name Role Phone Francine Matson Unavailable [phone] Reason For Referral No Information Problems Problem Type SNOMED Code ICD Code Onset Dates Problem Status W/U Status Risk Notes Problem Pelvic and perineal pain (437600846) Abdominal pain, suprapubic (R10.2) 12/23/19 11 Active confirmed PELVIC PAIN Problem Tobacco user (333183710) Cigarette nicotine dependence without complication (F17.210) 12/23/19 11 Active confirmed SMOKER Problem Increased frequency of urination (930110231) FOM (frequency of micturition) (R35.0) 12/23/19 11 Active confirmed URINARY FREQUENCY Problem Adult health examination (925243563) Adult general medical exam (Z00.00) 12/23/19 11 [...]
--- OUTSIDE RECORDS SUMMARY | 2025-09-10 06:13 | XMS_ITS | Clinical Summary ---
Author Organization [facility] Address [address] [id number] Care Team Providers Care Peoplesoft Programmer Name Role Phone AlexEv Elina CRISTINA Primary Care Provider [phone] Family History Medical History Relation Name Comments [...] 2025 UKY-Zoster Vaccines (1 of 2) 2025 [id number]-63 Vaccine (3 - 2024- season) 2025 08/06/2021, 11/28/2020 UKY-Influenza Vaccine (#1) 2025 HPV Vaccines (No Doses Required) Completed UKY-HIB Vaccines Aged Out No longer e [...] complete this topic Insurance SARMAD Care Teams Peoplesoft Programmer Relationship Specialty Start Date End Date Ev Johnson PA [address] [place] [address] PCP - General 05/28/23
--- OUTSIDE RECORDS SUMMARY | 2025-09-10 06:13 | XMS_ITS | Data Portability ---
Author Organization [facility] Address [address] [place] [address] Assessment No assessment recorded. Plan of Treatment Reminders Order Date Submit Date Provider Last Modified By Organization Details Last Modified Time Details Appointments None recorded. Lab CBC w/ auto diff 2023 Palette [facility]), [address] [place], [address], 12:18:34 CMP, serum or plasma 2023 LAURA [facility]), [address] [place], [address], 4 12:18:35 vitamin B12 + folate, serum or blood 2023 LAURA [facility]), [address] [place], [address], 4 12:18:33 iron + TIBC + ferritin, serum 2023 LAURA [facility] [address] [place], [address], 4 12:18:33 magnesium, serum or plasma 2023 LAURA [facility] [address] [place], [address], 4 12:18:36 thyroid panel, serum 2023 LAURA [facility] [address] [facility], [place], [address], 4 12:18:35 thyroid peroxidase (tpo) Ab, serum 2023 LAURA [facility] [address] [facility], [place], [address], 12:18:37 tsi (thyroid-st imulating immunoglobu mindi), serum 2023 LAURA [facility] [address] [facility], [place], [address], 12:18:36 Referral None recorded. Procedures None recorded. Surgeries None recorded. Imaging electromyog ronit + nerve conduction study - [facility]ATION [address] [facility], [address], [place], [address], 14:23:32 ankle brachial index - first available appt 2023 [facility] [address], [place], [address], 09:40:01 Medication Orders Klonopin 1 mg tablet 2023 [place] [facility]61029, [address], [id number], 4 09:33:43 Flonase Allergy Relief 50 mcg/actuati on nasal spray,suspe nsion 2023 [place] [facility], [address], [id number], 4 16:27:36 montelukast 10 mg tablet 102023 [facility] #00835, [address] [facility] [address], [place] Mcc[place], [id number], 16:27:37 Klonopin 1 mg tablet 2023 [facility] #57654, [address] [facility] [address], [place], [id number], 4 16:27:54 omeprazole 40 mg capsule,del ayed release 2023 [facility], [address] [facility] [address], [place], [id number], 4 16:27:39 nystatin 100,000 unit/mL oral suspension 2023 [facility] #52433, [address] [facility] [address], [place], [id number], 09:12:38 hydroxyzine pamoate 25 mg capsule 2023 [facility] #96151, [address] [facility] [address], [place], [id number], 4 16:27:39 cyclobenzap rine 5 mg tablet 2023 [facility], [address] [facility] [address], [place], [id number], 16:27:38 levothyroxi ne 100 mcg tablet 2023 [facility] #77451, [address] [facility] [address], [place], [id number], 4 16:27:38 Patient TargetsNo targets recorded. Patient Instructions Encounter Date Encounter Id Patient Instructions Last Modified By Organization Details Last Modified Time 08/18/2024 [id number] learning about healthy weight [id number] Not available 08/18/2024 09:19:22 Reason for Referral None Reported. Results Created Date Observation Date Name Description Value Unit Range Abnormal Flag Note LastModifiedBy Organization Detail LastModifiedTime 07/17/2007/19/2024 FE+TI BC+FE R iron bind.cap.(TI BC) 332 ug/dL 250-45 0 normal Not Available [facility] ([facility]) [address] [place], [address], 07/24/2024 12:18:32 07/17/2007/19/2024 FE+TI BC+FE R UIBC 289 ug/dL 131-42 5 normal Not Available [facility] ([facility]) [address] [place], [address], 07/24/2024 12:18:32 07/17/2007/19/2024 FE+TI BC+FE R iron 43 ug/dL 27-159 normal Not Available [facility] ([facility]) [address] [place], [address], 07/24/2024 12:18:32 07/17/20 24 07/19/2024 FE+TI BC+FE R iron saturation 13 % 15-55 below low normal Not Available [facility] ([facility]) [address] [place], [address], 07/24/2024 12:18:32 07/17/20 24 07/19/2024 FE+TI BC+FE R ferritin 25 NG/mL 15-150 normal Not Available [facility] ([facility]) [address] [place], [address], 07/24/2024 12:18:32 07/17/20 24 07/19/2024 VITAM IN B12+F OLATE vitamin B12 333 pg/mL 232-12 45 normal Not Available [facility] ([facility]) [address] [place], [address], 07/24/2024 12:18:33 07/17/2007/19/2024 VITAM IN B12+F OLATE folate (folic acid), serum 10.4 NG/mL >3.0 normal A serum folat e karen ntrat ion of less than 3.1 ng/mL is consi dered to repre sent clini sally defic iency . Not Available [facility] ([facility]) [address] [facility], [place], [address], 07/24/2024 12:18:33 07/17/2007/21/2024 VITAM IN B12+F OLATE homocyst(E)i ne 9.3 umol/ L 0.0-14 .5 Not Available [facility] ([facility]) [address] [facility], [place], [address], 07/24/2024 12:18:33 07/17/2007/23/2024 VITAM IN B12+F OLATE methylmaloni c acid, serum 124 nmol/ L 0-378 Not Available [facility] ([facility]) [address] [facility], [place], [address], 07/24/2024 12:18:33 07/17/20 24 07/19/2024 CBC WITH DIFFE RENTI AL/PL ATELE T WBC 6.0 x10e3 /uL 3.4-10 .8 normal Not Available [facility] ([facility]) [address] [facility], [place], [address], 07/24/2024 12:18:34 07/17/2007/19/2024 CBC WITH DIFFE RENTI AL/PL ATELE T RBC 4.76 x10e6 /uL 3.77-5 .28 normal Not Available [facility] ([facility]) [address] [facility], [place], [address], 07/24/2024 12:18:34 07/17/20 24 07/19/2024 CBC WITH DIFFE RENTI AL/PL ATELE T hemoglobin 13.4 g/dL 11.1-1 5.9 normal Not Available [facility] ([facility]) [address] [place], [address], 07/24/2024 12:18:34 07/17/20 24 07/19/2024 CBC WITH DIFFE RENTI AL/PL ATELE T hematocrit 43.4 % 34.0-4 6.6 normal Not Available [facility] ([facility]) [address] [place], [address], 07/24/2024 12:18:34 07/17/2007/19/2024 CBC WITH DIFFE RENTI AL/PL ATELE T MCV 91 fL 79-97 normal Not Available [facility] ([facility]) [address] [place], [address], 07/24/2024 12:18:34 07/17/2007/19/2024 CBC WITH DIFFE RENTI AL/PL ATELE T MCH 28.2 pg 26.6-3 3.0 normal Not Available [facility] ([facility]) [address] [place], [address], 07/24/2024 12:18:34 07/17/2007/19/2024 CBC WITH DIFFE RENTI AL/PL ATELE T MCHC 30.9 g/dL 31.5-3 5.7 below low normal Not Available [facility] ([facility]) [address] [place], [address], 07/24/2024 12:18:34 07/17/2007/19/2024 CBC WITH DIFFE RENTI AL/PL ATELE T RDW 13.4 % 11.7-1 5.4 Not Available [facility] ([facility]) [address] [place], [address], 07/24/2024 12:18:34 07/17/2007/19/2024 CBC WITH DIFFE RENTI AL/PL ATELE T platelets 258 x10e3 /uL 150-45 0 normal Not Available [facility] ([facility]) [address] [facility], [place], [address], 07/24/2024 12:18:34 07/17/20 24 07/19/2024 CBC WITH DIFFE RENTI AL/PL ATELE T neutrophils 67 % not estab. normal Not Available [facility] ([facility]) [address] [facility], [place], [address], 07/24/2024 12:18:34 07/17/2007/19/2024 CBC WITH DIFFE RENTI AL/PL ATELE T lymphs 22 % not estab. normal Not Available [facility] ([facility]) [address] [facility], [place], [address], 07/24/2024 12:18:34 07/17/20 24 07/19/2024 CBC WITH DIFFE RENTI AL/PL ATELE T monocytes 9 % not estab. normal Not Available [facility] ([facility]) [address] [facility], [place], [address], 07/24/2024 12:18:34 07/17/20 24 07/19/2024 CBC WITH DIFFE RENTI AL/PL ATELE T eos 1 % not estab. normal Not Available [facility] ([facility]) [address] [facility], [place], [address], 07/24/2024 12:18:34 07/17/20 24 07/19/2024 CBC WITH DIFFE RENTI AL/PL ATELE T basos 1 % not estab. normal Not Available [facility] ([facility]) [address] [facility], [place], [address], 07/24/2024 12:18:34 07/17/20 24 07/19/2024 CBC WITH DIFFE RENTI AL/PL ATELE T immature cells ENTRY LEVEL ACCOUNTANT Not Available [facility] ([facility]) [address] [facility], [place], [address], 07/24/2024 12:18:34 07/17/2007/19/2024 CBC WITH DIFFE RENTI AL/PL ATELE T neutrophils (absolute) 4.0 x10e3 /uL 1.4-7. 0 normal Not Available [facility] ([facility]) [address] [facility], [place], [address], 07/24/2024 12:18:34 07/17/2007/19/2024 CBC WITH DIFFE RENTI AL/PL ATELE T lymphs (absolute) 1.3 x10e3 /uL 0.7-3. 1 normal Not Available [facility] ([facility]) [address] [facility], [place], [address], 07/24/2024 12:18:34 07/17/2007/19/2024 CBC WITH DIFFE RENTI AL/PL ATELE T monocytes(ab solute) 0.6 x10e3 /uL 0.1-0. 9 normal Not Available [facility] ([facility]) [address] [facility], [place], [address], 07/24/2024 12:18:34 07/17/20 24 07/19/2024 CBC WITH DIFFE RENTI AL/PL ATELE T eos (absolute) 0.1 x10e3 /uL 0.0-0. 4 normal Not Available [facility] ([facility]) [address] [facility], [place], [address], 07/24/2024 12:18:34 07/17/2007/19/2024 CBC WITH DIFFE RENTI AL/PL ATELE T baso (absolute) 0.1 x10e3 /uL 0.0-0. 2 normal Not Available [facility] ([facility]) [address] [facility], [place], [address], 07/24/2024 12:18:34 07/17/2007/19/2024 CBC WITH DIFFE RENTI AL/PL ATELE T immature granulocytes 0 % not estab. Not Available [facility] ([facility]) [address] [facility], [place], [address], 07/24/2024 12:18:34 07/17/20 24 07/19/2024 CBC WITH DIFFE RENTI AL/PL ATELE T immature grans (abs) 0.0 x10e3 /uL 0.0-0. 1 Not Available [facility] ([facility]) [address] [facility], [place], [address], 07/24/2024 12:18:34 07/17/2007/19/2024 CBC WITH DIFFE RENTI AL/PL ATELE T NRBC ENTRY LEVEL ACCOUNTANT Not Available [facility] ([facility]) [address] [facility], [place], [address], 07/24/2024 12:18:34 07/17/2007/19/2024 CBC WITH DIFFE RENTI AL/PL ATELE T hematology comments: ENTRY LEVEL ACCOUNTANT Not Available [facility] ([facility]) [address] [facility], [place], [address], 07/24/2024 12:18:34 07/17/20 24 07/19/2024 COMP. METAB OLIC PANEL (14) glucose 80 mg/dL 70-99 normal Not Available [facility] ([facility]) [address] [facility], [place], [address], 07/24/2024 12:18:34 07/17/20 24 07/19/2024 COMP. METAB OLIC PANEL (14) BUN 12 mg/dL 6-24 normal Not Available [facility] ([facility]) [address] [facility], [place], [address], 07/24/2024 12:18:34 07/17/20 24 07/19/2024 COMP. METAB OLIC PANEL (14) creatinine 0.76 mg/dL 0.57-1 .00 normal Not Available [facility] ([facility]) [address] [facility], [place], [address], 07/24/2024 12:18:34 07/17/20 24 07/19/2024 COMP. METAB OLIC PANEL (14) eGFR 96 mL/mi n/1.7 3 >59 normal Not Available [facility] ([facility]) [address] [facility], [place], [address], 07/24/2024 12:18:34 07/17/20 24 07/19/2024 COMP. METAB OLIC PANEL (14) BUN/creatini ne ratio 16 9-23 normal Not Available [facility] ([facility]) [address] [facility], [place], [address], 07/24/2024 12:18:34 07/17/20 24 07/19/2024 COMP. METAB OLIC PANEL (14) sodium 141 mmol/ L 134-14 4 normal Not Available [facility] ([facility]) [address] [facility], [place], [address], 07/24/2024 12:18:34 07/17/20 24 07/19/2024 COMP. METAB OLIC PANEL (14) potassium 4.0 mmol/ L 3.5-5. 2 normal Not Available [facility] ([facility]) [address] [facility], [place], [address], 07/24/2024 12:18:34 07/17/20 24 07/19/2024 COMP. METAB OLIC PANEL (14) chloride 104 mmol/ L 96-106 normal Not Available [facility] ([facility]) [address] [facility] [place], [address], 07/24/2024 12:18:34 07/17/20 24 07/19/2024 COMP. METAB OLIC PANEL (14) carbon dioxide, total 23 mmol/ L 20-29 normal Not Available [facility] ([facility]) [address] [facility], [place], [address], 07/24/2024 12:18:34 07/17/20 24 07/19/2024 COMP. METAB OLIC PANEL (14) calcium 8.6 mg/dL 8.7-10 .2 below low normal Not Available [facility] ([facility]) [address] [facility], [place], [address], 07/24/2024 12:18:34 07/17/2007/19/2024 COMP. METAB OLIC PANEL (14) protein, total 6.7 g/dL 6.0-8. 5 normal Not Available [facility] ([facility]) [address] [place], [address], 07/24/2024 12:18:34 07/17/2007/19/2024 COMP. METAB OLIC PANEL (14) albumin 4.4 g/dL 3.9-4. 9 normal Not Available [facility] ([facility]) [address] [facility] [place], [address], 07/24/2024 12:18:34 07/17/2007/19/2024 COMP. METAB OLIC PANEL (14) globulin, total 2.3 g/dL 1.5-4. 5 Not Available [facility] ([facility]) [address] [facility], [place], [address], 07/24/2024 12:18:34 07/17/2007/19/2024 COMP. METAB OLIC PANEL (14) bilirubin, total <0.2 mg/dL 0.0-1. 2 Not Available [facility] ([facility]) [address] [facility] [place], [address], 07/24/2024 12:18:34 07/17/20 24 07/19/2024 COMP. METAB OLIC PANEL (14) alkaline phosphatase 55 IU/L 44-121 normal Not Available [facility]) [address] [facility] [place], [address], 07/24/2024 12:18:34 07/17/20 24 07/19/2024 COMP. METAB OLIC PANEL (14) AST (SGOT) 20 IU/L 0-40 normal Not Available [facility] ([facility]) [address] [place], [address], 07/24/2024 12:18:34 07/17/20 24 07/19/2024 COMP. METAB OLIC PANEL (14) ALT (SGPT) 12 IU/L 0-32 normal Not Available [facility] ([facility]) [address] [place], [address], 07/24/2024 12:18:34 07/17/2007/19/2024 THYRO ID PANEL WITH TSH TSH 2.020 uIU/m L 0.450- 4.500 normal Not Available [facility] ([facility]) [address] [place], [address], 07/24/2024 12:18:35 07/17/20 24 07/19/2024 THYRO ID PANEL WITH TSH thyroxine (T4) 11.9 ug/dL 4.5-12 .0 normal Not Available [facility] ([facility]) [address] [place], [address], 07/24/2024 12:18:35 07/17/20 24 07/19/2024 THYRO ID PANEL WITH TSH T3 uptake 24 % 24-39 normal Not Available [facility] ([facility]) [address] [place], [address], 07/24/2024 12:18:35 07/17/20 24 07/19/2024 THYRO ID PANEL WITH TSH free thyroxine index 2.9 1.2-4. 9 normal Not Available [facility] ([facility]) [address] [place], [address], 07/24/2024 12:18:35 07/17/20 24 07/22/2024 THYRO ID STIM IMMUN OGLOB ULIN thyroid stim immunoglobul in <0.10 IU/L 0.00-0 .55 Not Available [facility] ([facility]) [address] [place], [address], 07/24/2024 12:18:36 07/17/2007/19/2024 MAGNE SIUM magnesium 2.2 mg/dL 1.6-2. 3 normal Not Available [facility] ([facility]) [address] [place], [address], 07/24/2024 12:18:36 07/17/2007/19/2024 THYRO ID PEROX IDASE (TPO) AB thyroid peroxidase (tpo) Ab 10 IU/mL 0-34 normal Not Available [facility] ([facility]) [address] [facility], [place], [address], 07/24/2024 12:18:37 08/31/2008/25/2024 ankle brach ial index No observ ation record ed. [address] [facility] [address], [place], [address], 08/31/2024 09:57:22 Result Notes None recorded. Problems Name Problem SNOMED Code Status Onset Date Resolution Date Notes Provider Name and Address Organization Details Recorded Time Generalized anxiety disorder 40387392 Active 2023 IBETH Morrison [address] [place] [address], [address], [employer] 10:07:45 Insomnia 521933006 Active 2023 IBETH Morrison [address] [place] [address], [address] 8, [employer] 10:07:38 Hypothyroidism 85602099 Active 2023 IBETH Morrison [address] [place] [address], [address] 8, [employer] 10:07:47 Allergic rhinitis 66975312 Active 2023 IBETH Morrison [address] [place] [address], [address] 8, [employer] 10:07:25 Spasm of back muscles 915498708 Active 2023 IBETH Morrison [address] [place] [address], [address] 8, [employer] 4 10:07:53 Gastroesophage al reflux disease 344425605 Active 2023 IBETH Morrison [address] [place] [address], [address] 8, [employer] 4 10:07:32 Mild memory disturbance 427312732 Active 2023 IBETH Morrison [address] [place] [address], [address] 8, [employer] 16:14:54 Candidiasis of mouth 08835508 Active 2023 IBETH Morrison [address] [place] [address], [address] [place] [address] 8, [employer] 4 16:15:36 Pain in left lower limb 706636902 Active 2023 IBETH Morrison [address] [place] [address], [address] [place] [address] 8, [employer] 09:33:08 Problem Notes None recorded. Procedures Surgical History Date Name Laterality Status Provider Name and Address Organization Details Recorded Time 09/20/19 23 Most Recent Mammogram completed [employer] 07/17/2024 15:57:35 Hysterectomy completed [employer] [facility] [employer] 07/17/2024 15:57:36 Imaging Results None recorded. Procedure Notes None recorded. Medical Equipment None Reported. Allergies Allergen ID Allergen Name Allergen Category Reaction Reaction Severity Criticality Documentation Date Start Date Code Code System Note Provider Name and Address Organization Details Recorded Time 68921 Product containin g penicilli n (product) medicatio n itching rash Not available Not available Not available 07/17/2024 49042 8001 SNOMED Anya Vice [facility], [employer] 15:57:35 Medications Name Sig Start Date [...] mass index (BMI) Body height Oxygen saturation Heart rate Systolic And Diastolic Provider Name and Address Organization Details Last Updated DateTime 4 70173.9 8 g 27.4 kg/m2 167.64 cm 95 % 69 /min 131/83 mm[Hg] Anya Gallegos [employer] [facility] 4 15:57:48 Date Recorded Body height Body mass index (BMI) Body weight Heart rate Oxygen saturation Systolic And Diastolic Provider Name and Address Organization Details Last Updated DateTime 4 167.64 cm 27.7 kg/m2 73185.1 g 64 /min 98 % 117/77 mm[Hg] Harriet Walters [employer] [facility] 4 09:16:43 Social History Question Answer Notes LastModified by Organizat ion Details LastModified Time Tobacco Smoking Status Former Smoker Anya kumari [employer]. 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 No Information not available 07/17/2024 Are You Deaf Or Do You Have Serious Difficulty Hearing? No Information not available 07/17/2024 What Type Of Diet Are You Following? REGULAR Information not available 07/17/2024 Who Is Your Employer? [employer] Information not available 07/17/2024 Have There Been [...] Do You Have A Medical Power Of Manager Nuclear? No Information not available 07/17/2024 What Was The Date Of Your Most Recent Tobacco Screening? 08/18/2024 [email or web address] Information not available 08/18/2024 Have You Ever [...] anxious, or unable to sleep at night)? [id number] Information not available 07/17/2024 Do you have [...] available 2023 15:57:35 Medical History Condition Response Coronary Artery Disease N Other N Gout N Blood Diseases N Kidney Stones N Hyperthyroidism N Blood Transfusion N COPD N Depression N Dermatologic Disorders N Anxiety Disorder N Muscle, Joint, or Bone Problems N Autoimmune disease N Vision or Eye Problems N Arthritis N Polyps N Infertility N Mental Disorder N Acid Reflux (GERD) Y Cancer N Stroke N Neurologic/Epilepsy N Fibromyalgia N Headaches Y Kidney Disease N Heart Problems N Ear or Hearing Problems N Hospitalizations N Learning Disorder N Artificial Joints N Acne N Eating Disorder N Constipation N Hepatitis/Liver Disease N Tuberculosis N Asthma N Trauma/Violence N Substance Abuse N Hepatitis N Pulmonary Embolism N Chronic Ear Infections N Chicken Pox N Autism Spectrum Disorder (ASD) N Thrombophilias N Allergies (Food, seasonal, environmental ) Y Breast Cancer N Emergency room visit since last appointm ent. N Lung Disease N Hypothyroidism N Defects or Inherited Disease N Developmental or Behavioral Disorders N Breast Problem N Difficulty Swallowing N Anesthesia Complications N History of STI N Meniere's disease N Congenital Anomalies N Endometriosis N Bladder or Kidney Problems N High Cholesterol N Liver Disease N Psychiatric/Mental Health Condition N Organ Transplant N Dialysis N Schizophrenia N Allergies/Hayfever N Thyroid Problems Y GI Problems N ADD/ADHD N Anemia N Mental Illness N Diabetes N Ovarian Cancer N Bedwetting N Eczema N Abuse/Domestic Violence N Diverticulitis N Reflux/GERD N Depression/ depression N Heart Disease N Tourette Syndrome N Pre-Eclampsia N Hypertension N Osteoporosis N Gynecological History Statement/Question Response Menses Monthly N HPV Vaccine N Date of Last Pap Smear Most Recent Mammogram 09/20/2022 Age at First Child 22 Obstetrics History GPAL:G 0 P 0 0 0 0 Immunizations Vaccine Type Date Status Note Provider Nam e and Address Organization Details Recorded Time COVID-19, mRNA, LNP-S, PF, 100 mcg/0.5mL dose or 50 mcg/0.25mL dose 08/06/2021 completed [employer] [place] [employer]. 08/18/2024 09:10:41 COVID-19 vaccine, vector-nr, rS-Ad26, PF, 0.5 mL 11/28/2020 completed Harrietmaddy Walters [employer] [place] [employer] 08/18/2024 09:10:41 Past Encounters Encounter ID Performer Location Encounter Start Date Encounter Closed Date Diagnosis/Indication Diagnosis SNOMED-CT Code Diagnosis ICD10 Code Diagnosis IMO Codes Diagnosis Note [id number] IBETH Morrison [facility] [address] [place] [address] 07/17/2024 15:47:48 07/17/2024 16:37:28 Insomnia 500754411 G47.00 Generalize d anxiety disorder 57589308 F41.1 Hypothyroidism 90575474 E03.9 Allergic rhinitis 664503 04 J30.9 Gastroesop hageal reflux disease 458551523 K21.9 Spasm of back muscles 20 2524471 M62.830 Mild memor y disturbance 934686746 R41.3 Candidiasis of mouth 797 33198 B37.0 [id number] IBETH Morrison [facility] [address] [place] [address] 08/18/2024 08:45:13 08/18/2024 09:31:21 Body mass index 25-29 - overweight 436799192 Z68.27 Generalize d anxiety disorder 42770449 F41.1 Insomnia 198290401 G47.0 0 Pain in le ft lower limb 028522609 M79.605 Health Concerns Section Related Observation LastModified by Organization Detai ls LastModified Time None Recorded Concern Status LastModified by Organization Details LastModified Time None Recorded Advance Directives Directive N: Payers Insurance Date Sequence Insurance Name Policy Number Policy Mike Covered Member ID Mike Member ID Guarantor Name 08/21/2024 1 [place] [id number] Eliz Em [id number] Eliz Maria Antonia Notes Date Note Type Note Provider Name and Address Organization Details Recorded Time 07/17/2024 text/html Patient presents to [facility]. Former patient of mine.Patient has history [...] like she has brain fog. IBETH Morrison [address] [place] [address], [address], [facility] [employer] 07/17/2024 17:27:15 08/18/2024 text/html Patient feels [...] due for refills on Klonopin. IBETH Morrison [address] [place], [address], [facility] [employer] 08/18/2024 10:36:00 OBGyn Episode No OBEpisode recorded.
--- OUTSIDE RECORDS SUMMARY | 2025-09-10 06:13 | XMS_ITS | Clinical Summary ---
Author Organization [facility] Address [address] [place] [address] Care Team Providers Care Broadcast Operations Director Name Role Phone Fani Lundberg Primary Care Provider [phone] Allergies No known active allergies Medications omeprazole [...] 2) 2025 INFLUENZA VACCINE 04/20/2025 Insurance [facility] P[facility] Care Teams Broadcast Operations Director Relationship Specialty Start Date End Date Fani Lundberg [facility] [id number] PCP - General Family Medicine 08/17/18
== END ==
LOC: SL 06:11
PROVIDERS: PCP Family Medicine; Visit Provider Family Medicine
DX: G47.33 Obstructive sleep apnea (adult) (pediatric) (principal); G47.36 Sleep related hypoventilation in conditions classified elsewhere
CPT/HCPCS: G0399